=== PATIENT | female | born 1970 | race American Indian/Alaskan Native ===

== ENCOUNTER 2016-12-24 15:05 | Outpatient (CLI) | payer BC, MEDICARE | END 2016-12-24 15:06 | disposition home or self-care (01) | LOC: LABHHL 15:05 | PROVIDERS: ATTEND Surgery | DX: N63 Unspecified lump in breast (principal); N60.02 Solitary cyst of left breast | CPT/HCPCS: 88112 ==

== ENCOUNTER 2016-12-26 09:05 | Outpatient (CLI) | payer MEDICARE, BC ==
--- NOTE | 2016-12-26 11:09 | Mammography Report ---
Bilateral mammogram: No previous available. CAD study utilized. Findings: Predominance adipose tissue bilaterally. Circumscribed mass measuring 4.09 x 4.09 cm in diameter noted at upper outer anterior left breast. No microcalcification. Benign axillary nodes. There is significant no focal circumscribed asymmetry noted at in the anterior left breast. In similar 3 mm densities are noted in mid posterior right breast. Impression: Circumscribed mass upper outer left breast Small circumscribed focal densities right and left breast. Recommend comparison with previous studies. If previous studies are not available spot mag and if necessary sonographic examination is advised. BI-RADS CATEGORY: 0 = Needs additional imaging evaluation ACR BI-RADS MAMMOGRAPHIC CODES: 0 = Needs additional imaging evaluation; 1 = Negative; 2 = Benign; 3 = Probably benign; 4 = Suspicious; 5 = Malignant; 6 = Known biopsy-proven malignancy COMMENT: 1. Dense breast tissue, i.e., adenosis, fibrocystic changes, etc., may obscure an underlying neoplasm. 2. Approximately 10% of cancers are not detected with mammography. 3. A negative mammography report should not delay biopsy if a clinically suspicious mass is present. COMMENT: Patient follow-up letters are generated in GitHub.
== END 2016-12-26 09:06 | disposition home or self-care (01) ==
LOC: MAMMO 09:05
PROVIDERS: ATTEND Surgery
DX: Z12.31 Encounter for screening mammogram for malignant neoplasm of breast (principal); I12.0 Hypertensive chronic kidney disease with stage 5 chronic kidney disease or end stage renal disease; N18.6 End stage renal disease; E11.22 Type 2 diabetes mellitus with diabetic chronic kidney disease; N17.9 Acute kidney failure, unspecified; D64.9 Anemia, unspecified
CPT/HCPCS: 77067; G0202

== ENCOUNTER 2017-01-06 15:08 | Outpatient (CLI) | payer MEDICARE ==
--- NOTE | 2017-01-06 16:31 | Mammography Report ---
Spot compression magnification of circumscribed densities in the right breast and in the left breast followed by sonographic examination: Findings: Densities are approximately 5 mm in diameter and well circumscribed. No microcalcifications, no spiculation. Sonographic examination reveals no cystic or solid mass corresponding to the region of the densities. There is subareolar cyst identified at the right breast measuring 0.6 x 0.3 x 0.5 cm which is an incidental finding and this cyst appears benign. Impression: Probably benign density is right and left breast. 6 month followup with mammogram and if necessary sonogram recommended. BI-RADS CATEGORY: 3 = Probably benign ACR BI-RADS MAMMOGRAPHIC CODES: 0 = Needs additional imaging evaluation; 1 = Negative; 2 = Benign; 3 = Probably benign; 4 = Suspicious; 5 = Malignant; 6 = Known biopsy-proven malignancy COMMENT: 1. Dense breast tissue, i.e., adenosis, fibrocystic changes, etc., may obscure an underlying neoplasm. 2. Approximately 10% of cancers are not detected with mammography. 3. A negative mammography report should not delay biopsy if a clinically suspicious mass is present. COMMENT: Patient follow-up letters are generated in [employer].
== END 2017-01-06 15:09 | disposition home or self-care (01) ==
LOC: SPVWC 15:08
PROVIDERS: ATTEND Surgery
DX: R92.2 Inconclusive mammogram (principal); I10 Essential (primary) hypertension; I50.9 Heart failure, unspecified
CPT/HCPCS: 76642; G0204; 77066

== ENCOUNTER 2017-01-07 06:31 | Day surgery (SDC) | payer MEDICARE ==
[2017-01-07] MEDS ORDERED: XYLOCAINE MPF 2% ONE (06:40)
[2017-01-07] MEDS ORDERED: DIPRIVAN 10 MG/ML IV ONE ×3 (06:43→09:12)
[2017-01-07] MEDS ORDERED: DILAUDID ONE (06:43)
[2017-01-07] MEDS ORDERED: NACL 0.9% 1000 ML 1,000 ML ONE (06:53)
[2017-01-07] MEDS ORDERED: PEPCID PO NR (07:00)
[2017-01-07] MEDS ORDERED: LACTATED RINGERS 1,000 ML IV SCH (07:00)
[2017-01-07] MEDS ORDERED: VERSED IV NR (07:00)
--- NOTE | 2017-01-07 07:00 | Anesthesia Day of Surgery ---
Anesthesia Day of Surgery - Day of Surgery Patient Examined: Yes Patient H&P Reviewed: Yes Patient is NPO: Yes
--- NOTE | 2017-01-07 07:03 | Anesthesia Consultation ---
Anesthesia Consult and Med Hx - Airway Anesthetic Teeth Evaluation: Good, Caps, Crowns ROM Head & Neck: Adequate Mental/Hyoid Distance: Adequate Mallampati Class: Class II Intubation Access Assessment: Probably Good - Pulmonary Exam CTA: Yes - Cardiac Exam Cardiac Exam: RRR - Pre-Operative Health Status ASA Pre-Surgery Classification: ASA4 Proposed Anesthetic Plan: MAC - Pulmonary Hx Smoking: No Hx Asthma: No SOB: No COPD: No Hx Pneumonia: No Hx Sleep Apnea: No - Cardiovascular System Hx Hypertension: Yes (since 2002) Hx Coronary Artery Disease: No Hx Heart Attack/AMI: No Hx Angina: No Hx Percutaneous Transluminal Coronary Angioplasty (PTCA): No Hx Pacemaker: No Hx Internal Defibrillator: No Hx Valvular Heart Disease: No Hx Heart Murmur: No Hx Peripheral Vascular Disease: No - Central Nervous System Hx Neuromuscular Disorder: Yes (hx GOUT) Hx Back Pain: No Hx Psychiatric Problems: No - Gastrointestinal Hx Ulcer: No - Endocrine Hx Renal Disease: Yes (ESRD/dialysis , , THU) Hx End Stage Renal Disease: Yes (HD , , Thursday nocturnal) Hx Cirrhosis: No Hx Liver Disease: No Hx Non-Insulin Dependent Diabetes: Yes (pt not on meds for 3 years) Hx Hypothyroidism: No Hx Hyperthyroidism: No - Hematic Hx Anemia: Yes Hx Sickle Cell Disease: No - Other Systems Hx Alcohol Use: No Hx Substance Use: No Hx Cancer: No Hx Obesity: Yes (BMI 36.7) - Additional Comments Anesthesia Medical History Comments: Pt NPO except for fluids for meds this AM. Hx of obesity, HTN, ESRD, Anemis, DM.Difficult to awaken after dental procedure no other issues with anesthesia.
[2017-01-07] MEDS ORDERED: VERSED ONE (07:09)
[2017-01-07 07:21] LABS: Hemoglobin 11.9 gm/dl (10.1-14.3)
[2017-01-07] MEDS ORDERED: XYLOCAINE 1% 20 mL ONE (07:23)
[2017-01-07] MEDS ORDERED: MARCAINE 0.25% INFILTRATI ONE ×2 (07:23→08:44)
[2017-01-07] MEDS ORDERED: NACL 0.9% 1000 ML 1,000 ML IV SCH (07:30)
[2017-01-07] MEDS ORDERED: VANCOMYCIN/NS 1 GM/250 ML 1 GM/250 ML BAG IV NR (08:00)
[2017-01-07] MEDS ORDERED: NACL 0.9% IR ONE (08:44)
[2017-01-07] MEDS ORDERED: XYLOCAINE 1% 20 mL INFILTRATI ONE (08:44)
--- NOTE | 2017-01-07 09:35 | Short Stay Summary ---
Short Stay Documentation Date of service: 01/07/17 - History H&P: obtained from office - Allergies and Medications Current Medications: Allergies cefazolin sodium [From Ancef] Allergy (Severe, Verified 01/05/17 14:55) Shortness of Breath ketorolac tromethamine [From Toradol] Allergy (Severe, Verified 01/05/17 14:55) Shortness of Breath morphine Allergy (Severe, Verified 01/05/17 14:55) Shortness of Breath meperidine HCl [From Demerol] Adverse Reaction (Severe, Verified 01/05/17 14:55) Shortness of Breath Home Medications Medication Instructions Recorded Confirmed Last Taken Type RX: Sevelamer Carbonate [Renvela] 800 mg PO TIDWM 04/05/16 01/07/17 01/06/17 18: 00 History RX: cloNIDine [Catapres] 0.2 mg PO BID 01/05/17 01/07/17 01/07/17 06:00 History Active Medications Famotidine (Pepcid) 20 mg PO PREOP NR Stop: 01/07/17 23:59 Last Admin: 01/07/17 07:27 Dose: 20 mg Lactated Ringer's (Lactated Ringers) 1,000 mls @ 100 mls/hr IV DIRECT TODD Sodium Chloride (Nacl 0.9% 1000 Ml) 1,000 mls @ 42 mls/hr IV DIRECT TODD Last Admin: 01/07/17 07:39 Dose: 42 mls/hr Midazolam HCl (Versed) 2 mg IV PREOP NR Stop: 01/07/17 23:59 Last Admin: 01/07/17 07:57 Dose: 2 mg - Brief post op/procedure progress note Date of procedure: 01/07/17 Pre-op diagnosis: Left breast sebaceous cyst Post-op diagnosis: same Procedure: Left breast excisional biopsy of sebaceous cyst Anesthesia: GETA Findings: Known left breast sebaceous cyst at the 3:00 position Surgeon: CHRIS ESTES Estimated blood loss: minimal Pathology: list (left breast sebaceous cyst) Specimen disposition: to lab Condition: stable - Disposition Condition at discharge: Good Disposition: DC-01 TO HOME OR SELFCARE Short Stay Discharge Plan Activity: other (no heavy lifting) Diet: diabetic Wound: other (keep incision clean and dry and may shower in 24 hours; no baths, pools or lakes; do not rub or scrub incision) Follow up with: MARLENI ORR MD [Primary Care Provider] - 7 Days CHRIS ESTES MD [Staff Physician] - 7 Days
--- NOTE | 2017-01-07 09:43 | Operative Report ---
Operative Report Operative Report: Date of procedure:January 07, 2017 Pre-operative diagnosis: Left breast sebaceous cyst Post-operative diagnosis:Same Procedure name(s): Complex left breast sebaceous cyst excisional biopsy Surgeon: Naz Garvin MD Washing Machine Assembler: Same Anesthesia: Local MAC Findings: Left breast sebaceous cyst at the 3:00 position Complications: None EBL: Minimal Disposition: PACU in good condition Indications for operative procedure:This is a 46 year old lady with a chronic left breast sebaceous cyst. Given size of 5 cm, patient was wanting to proceed with an excisional biopsy. She wished to proceed with the above procedure. Procedure in detail:The patient was taken to the operating room and was laid supine. MAC anesthesia was administered. The left breast was prepped and draped in the normal sterile operative fashion. A left breast sebaceous cyst at 3 o' clock position 5 cm from the nipple was identified. The skin was anesthetized with 1% lidocaine mixed with quarter percent Marcaine. A skin incision was made with a 15 blade knife with dissection taken down to the subcutaneous tissues. Sebaceous cyst was appropriately excised with the aid of the Bovie cautery. Hemostasis was obtained. Specimen was sent to pathology. Breast cavity was appropriately irrigated and suctioned. The skin was approximated and closed using a running 4-0 Monocryl followed by skin affix. She tolerated surgery very well and was awakened from anesthesia without any complications and transferred to PACU in good condition.
--- NOTE | 2017-01-07 10:01 | Post Anesthesia Evaluation ---
- Post Anesthesia Evaluation Patient Participated: Yes Airway Patent: Yes Stable Respiratory Function: Yes Nausea/Vomiting: No Temp > 96.8F: Yes Pain Manageable: Yes Adequeate Hydration: Yes Anesthesia Complications: No Block Receding Appropriately: Not Applicable Patient on Ventilator: No
--- NOTE | 2017-01-07 10:25 | Post Anesthesia Evaluation ---
- Post Anesthesia Evaluation Patient Participated: Yes Airway Patent: Yes Stable Respiratory Function: Yes Nausea/Vomiting: No Temp > 96.8F: Yes Pain Manageable: Yes Adequeate Hydration: Yes Anesthesia Complications: No
[2017-01-07] MEDS ORDERED: ZOFRAN IV ONE (11:15)
[2017-01-07 11:54] VITALS: BP 117/69
== END 2017-01-07 11:18 | disposition home or self-care (01) ==
LOC: OR 06:31
PROVIDERS: ATTEND Surgery
DX: N60.82 Other benign mammary dysplasias of left breast (principal); N61.1 Abscess of the breast and nipple; E11.22 Type 2 diabetes mellitus with diabetic chronic kidney disease; I12.0 Hypertensive chronic kidney disease with stage 5 chronic kidney disease or end stage renal disease; N18.6 End stage renal disease; M10.9 Gout, unspecified; D64.9 Anemia, unspecified; E66.9 Obesity, unspecified; Z68.37 Body mass index [BMI] 37.0-37.9, adult; Z88.1 Allergy status to other antibiotic agents; Z88.5 Allergy status to narcotic agent; Z88.8 Allergy status to other drugs, medicaments and biological substances
CPT/HCPCS: 19120; 36415; 84132; 85014; 85018; 88307; J1170; J2250; J2405; J2704; J3370; J7030; 88304

== ENCOUNTER 2017-01-20 08:56 | Outpatient (CLI) | payer MEDICARE | END 2017-01-20 08:57 | disposition home or self-care (01) | LOC: ECHO 08:56 | PROVIDERS: ATTEND Internal Medicine Nephrology | DX: N18.6 End stage renal disease (principal); Z94.0 Kidney transplant status | CPT/HCPCS: 93017; 93320; 93325; C8928; Q9957 ==

== ENCOUNTER 2019-02-11 10:55 | Day surgery (SDC) | payer MEDICARE ==
[2019-02-11] MEDS ORDERED: XYLOCAINE MPF 2% ONE (11:00)
[2019-02-11] MEDS ORDERED: CLEOCIN 600 MG/50 mL 600 MG/50 ML BAG IV NR (11:19)
[2019-02-11 11:41] LABS: Basophils # (Auto) 0.1 K/mm3 (0.0-0.1); Basophils % (Auto) 0.9 % (0.0-1.8); Hematocrit 31.4 % (30.3-42.9); Hemoglobin 9.9 gm/dl (10.1-14.3); Lymphocytes # (Auto) 0.8 K/mm3 (1.2-5.4); Lymphocytes % (Auto) 12.3 % (13.4-35.0); Mean Corpuscular HGB Conc 32 % (30-34); Mean Corpuscular Volume 83 fl (79-97); Monocytes # (Auto) 0.5 K/mm3 (0.0-0.8); Monocytes % (Auto) 7.9 % (0.0-7.3); Platelet Count 306 K/mm3 (140-440); Red Blood Count 3.78 M/mm3 (3.65-5.03)
[2019-02-11 11:44] LABS: Red Cell Distribution Width 20.3 % (13.2-15.2)
[2019-02-11 11:50] LABS: INR 1.26 (0.87-1.13)
[2019-02-11 11:51] LABS: Partial Thromboplastin Time 26.9 Sec. (24.2-36.6)
[2019-02-11] MEDS ORDERED: VERSED ONE (11:53)
[2019-02-11] MEDS ORDERED: DIPRIVAN 10 MG/ML IV ONE ×2 (11:53)
[2019-02-11 11:56] LABS: Calcium 9.6 mg/dL (8.4-10.2)
[2019-02-11] MEDS ORDERED: NACL 0.9% 500 ML 500 ML IV SCH (12:00)
[2019-02-11] MEDS ORDERED: HURRICAINE ONE 20% TOPICAL SPRAY MM NR (12:00)
--- NOTE | 2019-02-11 15:26 | Anesthesia Consultation ---
Anesthesia Consult and Med Hx Date of service: 02/11/19 - Airway Anesthetic Teeth Evaluation: Good ROM Head & Neck: Adequate Mental/Hyoid Distance: Adequate Mallampati Class: Class III Intubation Access Assessment: Possibly Difficult - Pulmonary Exam CTA: Yes - Cardiac Exam Cardiac Exam: RRR - Pre-Operative Health Status ASA Pre-Surgery Classification: ASA3 Proposed Anesthetic Plan: MAC - Pulmonary Hx Smoking: No Hx Respiratory Symptoms: No - Cardiovascular System Hx Hypertension: Yes (patient denies) Hx Heart Attack/AMI: No Hx Percutaneous Transluminal Coronary Angioplasty (PTCA): No Hx Valvular Heart Disease: Yes (s/p AVR/MVR and TV repair 10/2018) - Central Nervous System Hx Seizures: No CVA: No Hx Psychiatric Problems: No - Gastrointestinal Hx Gastroesophageal Reflux Disease: No - Endocrine Hx End Stage Renal Disease: Yes (last HD 02/10/19) Hx Liver Disease: No Hx Insulin Dependent Diabetes: No Hx Non-Insulin Dependent Diabetes: No (patient denies) Hx Thyroid Disease: No - Hematic Hx Anemia: Yes - Other Systems Hx Obesity: Yes
--- NOTE | 2019-02-11 15:27 | Anesthesia Day of Surgery ---
Anesthesia Day of Surgery - Day of Surgery Patient Examined: Yes Patient H&P Reviewed: Yes Patient is NPO: Yes
[2019-02-11 16:02] VITALS: BP 141/95
== END 2019-02-11 16:23 | disposition home or self-care (01) ==
LOC: CATHLABREC 10:55 → EDSTATUS 12:00 → CATHLABREC 16:23
PROVIDERS: ATTEND Internal Medicine Cardiovascular Disease
DX: I08.1 Rheumatic disorders of both mitral and tricuspid valves (principal); I13.2 Hypertensive heart and chronic kidney disease with heart failure and with stage 5 chronic kidney disease, or end stage renal disease; E11.22 Type 2 diabetes mellitus with diabetic chronic kidney disease; N18.6 End stage renal disease; I50.21 Acute systolic (congestive) heart failure; I25.2 Old myocardial infarction; E11.42 Type 2 diabetes mellitus with diabetic polyneuropathy; E66.9 Obesity, unspecified; Z87.440 Personal history of urinary (tract) infections; Z86.79 Personal history of other diseases of the circulatory system; Z98.890 Other specified postprocedural states; Z95.3 Presence of xenogenic heart valve; Z79.899 Other long term (current) drug therapy; Z88.5 Allergy status to narcotic agent; Z68.32 Body mass index [BMI] 32.0-32.9, adult; Z98.51 Tubal ligation status; Z98.891 History of uterine scar from previous surgery; Z99.2 Dependence on renal dialysis; Z82.61 Family history of arthritis; Z83.3 Family history of diabetes mellitus; Z86.2 Personal history of diseases of the blood and blood-forming organs and certain disorders involving the immune mechanism; Z88.8 Allergy status to other drugs, medicaments and biological substances
CPT/HCPCS: 36415; 80048; 85025; 85610; 85730; 93312; 93320; 93325; 96365; J2250; J2704; J7040

== ENCOUNTER 2019-02-13 15:26 | Inpatient (IN) | payer MEDICARE ==
--- NOTE | 2019-02-13 16:15 | Emergency Department Report ---
ED Shortness of Breath HPI - General Chief Complaint: Dyspnea/Respdistress Stated Complaint: HEATH Time Seen by Provider: 02/13/19 16:14 Source: patient Mode of arrival: Stretcher Limitations: No Limitations - History of Present Illness Initial Comments: Patient is a 49-year-old female that presents emergency room for shortness of breath 2 days. Patient states her shortness of breath is worse with talking and exertion and activity. Patient states she can't walk more than a few steps without having to stop. Patient states her shortness of breath is better with rest. Patient complains of palpitation. Patient denies chest pain. Patient denies fever or chills. Patient states he recently had a bout of endocarditis where she was discharged from [facility] November 2018. Patient states that her endocarditis secondary to sepsis. Patient states she had open heart surgery at that time and hasn't a valve repair as well as 2 bouts replaced secondary to endocarditis and sepsis. Patient states she is on long-term IV antibiotics. Patient states one day ago her antibiotics were changed from daptomycin to Levaquin. Patient states she had a TILA last Thursday and there was no vegetations on her valves MD Complaint: shortness of breath -: Sudden Severity: severe Consistency: constant Improves With: rest, upright position Worsens With: lying flat, exertion, movement Associated Symptoms: orhopnia, palpitations - Related Data Home Medications Medication Instructions Recorded Confirmed Last Taken Sevelamer Carbonate [Renvela] 800 mg PO TIDWM 04/05/16 02/13/19 06/06/18 800 mg Aspirin [Adult Aspirin] 81 mg PO DAILY 02/13/19 02/13/19 Unknown Allergies Allergy/AdvReac Type Severity Reaction Status Date / Time cefazolin sodium [From Ancef] Allergy Severe Shortness Verified 01/05/17 14:55 of Breath ketorolac tromethamine Allergy Severe Shortness Verified 01/05/17 14:55 [From Toradol] of Breath morphine Allergy Severe Shortness Verified 01/05/17 14:55 of Breath vancomycin Allergy Shortness Verified 06/07/18 10:55 of Breath meperidine HCl [From Demerol] AdvReac Severe Shortness Verified 01/05/17 14:55 of Breath ED Review of Systems ROS: Stated complaint: HEATH Other details as noted in HPI Constitutional: denies: chills, fever Eyes: denies: eye pain, eye discharge, vision change ENT: denies: ear pain, throat pain Respiratory: shortness of breath, SOB with exertion, SOB at rest. denies: cough Cardiovascular: as per HPI, palpitations, dyspnea on exertion. denies: chest pain Endocrine: no symptoms reported Gastrointestinal: denies: abdominal pain, nausea, diarrhea Genitourinary: denies: urgency, dysuria, discharge Musculoskeletal: denies: back pain, joint swelling, arthralgia Skin: denies: rash, lesions Neurological: denies: headache, weakness, paresthesias Psychiatric: denies: anxiety, depression Hematological/Lymphatic: denies: easy bleeding, easy bruising ED Past Medical Hx - Past Medical History Previous Medical History?: Yes Hx Hypertension: Yes (patient denies) Hx Heart Attack/AMI: No Hx Congestive Heart Failure: No Hx Diabetes: Yes (pt states was borderline before weight loss, now her Dm is con trolled) Hx Deep Vein Thrombosis: No Hx Pulmonary Embolism: No Hx GERD: No Hx Liver Disease: No Hx Renal Disease: Yes (ESRD/dialysis Tues, Th, SUN) Hx Sickle Cell Disease: No Hx Arthritis: No Hx Headaches / Migraines: No Hx Seizures: No Hx Kidney Stones: No Hx Asthma: No Hx COPD: No Hx Tuberculosis: No Hx HIV: No Additional medical history: Aortic and Mitral valve replacement with cow valves 11/12 - Surgical History Past Surgical History?: Yes Hx Coronary Stent: No Hx Pacemaker: Yes Hx Internal Defibrillator: No Hx Appendectomy: Yes Additional Surgical History: x 2. tonsillectomy. myomectomy. fistula L-arm. Aortic and Mitral valve replacement with cow valves 11/12 - Family History Family history: no significant - Social History Smoking Status: Never Smoker Substance Use Type: None - Medications Home Medications: Home Medications Medication Instructions Recorded Confirmed Last Taken Type Sevelamer Carbonate [Renvela] 800 mg PO TIDWM 04/05/16 02/13/19 06/06/18 History 800 mg Aspirin [Adult Aspirin] 81 mg PO DAILY 02/13/19 02/13/19 Unknown History ED Physical Exam - General Limitations: No Limitations General appearance: alert, in no apparent distress - Head Head exam: Present: atraumatic, normocephalic - Eye Eye exam: Present: normal appearance - ENT ENT exam: Present: mucous membranes moist - Neck Neck exam: Present: normal inspection - Respiratory Respiratory exam: Present: normal lung sounds bilaterally. Absent: respiratory distress, wheezes, rales - Cardiovascular Cardiovascular Exam: Present: regular rate, normal rhythm. Absent: systolic murmur, diastolic murmur, rubs, gallop - GI/Abdominal GI/Abdominal exam: Present: soft, normal bowel sounds. Absent: distended, tenderness, guarding - Extremities Exam Extremities exam: Present: normal inspection - Back Exam Back exam: Present: normal inspection - Neurological Exam Neurological exam: Present: alert, oriented X3 - Psychiatric Psychiatric exam: Present: normal affect, normal mood - Skin Skin exam: Present: warm, dry, intact, normal color. Absent: rash ED Course Vital Signs 02/13/19 02/13/19 02/13/19 15:44 15:46 15:49 Temperature 98.3 F Pulse Rate 68 84 72 Respiratory 17 15 Rate Blood Pressure 123/78 Blood Pressure [Right] O2 Sat by Pulse 99 96 Oximetry 02/13/19 02/13/19 02/13/19 16:00 16:15 16:31 Temperature Pulse Rate 80 81 77 Respiratory 18 27 H 24 Rate Blood Pressure 129/100 123/78 123/78 Blood Pressure [Right] O2 Sat by Pulse 92 95 94 Oximetry 02/13/19 02/13/19 02/13/19 16:45 17:01 17:15 Temperature Pulse Rate 75 81 73 Respiratory 18 18 28 H Rate Blood Pressure 123/78 123/78 123/78 Blood Pressure [Right] O2 Sat by Pulse 100 97 Oximetry 02/13/19 02/13/19 02/13/19 17:31 18:01 18:31 Temperature Pulse Rate 77 74 81 Respiratory 20 16 12 Rate Blood Pressure 123/78 123/78 123/78 Blood Pressure [Right] O2 Sat by Pulse 97 100 100 Oximetry 02/13/19 02/13/19 19:59 20:00 Temperature 98.4 F Pulse Rate 74 Respiratory 20 20 Rate Blood Pressure Blood Pressure 115/75 [Right] O2 Sat by Pulse 100 100 Oximetry - Reevaluation(s) Reevaluation #1: I discussed all results patient. Patient will be admitted to the hospitalist service. Patient agrees to plan of care. 02/13/19 17:31 - Consultations Consultation #1: Hospitalist consult for admission. Hospitalist to admit patient assumed care of patient. bridge Orders placed. 02/13/19 17:31 ED Medical Decision Making - Lab Data Result diagrams: 02/13/19 16:02 02/13/19 16:02 - EKG Data -: EKG Interpreted by Me EKG shows normal: ST-T waves - EKG Data Interpretation: other (paced rhythm.) EKG interpreted by me, patient is atrial flutter and a paced rhythm. Patient found to have normal STs. Patient has an axis deviation and a left deviation. Patient has an abnormal EKG. With a rate of 76, wide QRSs 02/13/19 16:29 - Radiology Data Radiology results: report reviewed, image reviewed CHEST 1 VIEW INDICATION / CLINICAL INFORMATION: Chest Pain. Recent CABG surgery this past October COMPARISON: None available. FINDINGS: SUPPORT DEVICES: None. HEART / MEDIASTINUM: Cardiac size is mildly enlarged. Prosthetic valve as well as call center assistant device are present. LUNGS / PLEURA: Slightly suboptimal inspiration. Mild pulmonary vascular congestion without overt interstitial pulmonary edema. No evidence of pneumonia or pleural effusion. No pneumothorax. ADDITIONAL FINDINGS: No significant additional findings. IMPRESSION: 1. Mild cardiomegaly with pulmonary vascular congestion. - Medical Decision Making Patient is a 49-year-old female appears emergency room with complaints of shortness of breath. Patient found to be in CHF exacerbation. Patient admitted to the hospitalist service. Patient sat unremarkable except for findings consistent with end-stage renal disease. No hyperkalemia noted. Patient's troponin elevated but is most likely secondary to CK 80. We will watch the trend of her troponin. Patient's chest x-ray shows pulmonary congestion. - Differential Diagnosis CHF. Social breath. Discharged on exertion. Palpitations. Critical Care Time: Yes Critical care attestation.: If time is entered above; I have spent that time in minutes in the direct care of this critically ill patient, excluding procedure time. Critical Care Time: 35 minutes ED Disposition Clinical Impression: End stage renal disease, SOB (shortness of breath), CKD (chronic kidney disease) requiring chronic dialysis, Elevated troponin I level Congestive heart failure Qualifiers: Heart failure type: unspecified Heart failure chronicity: acute Qualified Code(s): I50.9 - Heart failure, unspecified Disposition: OP ADMIT IP TO THIS HOSP Is pt being admited?: Yes Does the pt Need Aspirin: No Condition: Critical Time of Disposition: 17:27
[2019-02-13 16:32] LABS: Calcium 9.8 mg/dL (8.4-10.2)
--- NOTE | 2019-02-13 16:36 | XRay Report ---
CHEST 1 VIEW INDICATION / CLINICAL INFORMATION: Chest Pain. Recent CABG surgery this past October COMPARISON: None available. FINDINGS: SUPPORT DEVICES: None. HEART / MEDIASTINUM: Cardiac size is mildly enlarged. Prosthetic valve as well as research nutritionist dev ice are present. LUNGS / PLEURA: Slightly suboptimal inspiration. Mild pulmonary vascular congestion without overt int erstitial pulmonary edema. No evidence of pneumonia or pleural effusion. No pneumothorax. ADDITIONAL FINDINGS: No significant additional findings. IMPRESSION: 1. Mild cardiomegaly with pulmonary vascular congestion. Signer Name: Poppy George MD Signed: 02/13/2019 4:32 PM Workstation Name: [id number]
[2019-02-13 16:51] LABS: Basophils # (Auto) 0.1 K/mm3 (0.0-0.1); Basophils % (Auto) 0.9 % (0.0-1.8); Hematocrit 31.9 % (30.3-42.9); Hemoglobin 10.2 gm/dl (10.1-14.3); Lymphocytes # (Auto) 1.3 K/mm3 (1.2-5.4); Lymphocytes % (Auto) 17.3 % (13.4-35.0); Mean Corpuscular HGB Conc 32 % (30-34); Mean Corpuscular Volume 82 fl (79-97); Monocytes # (Auto) 0.7 K/mm3 (0.0-0.8); Platelet Count 342 K/mm3 (140-440); Red Blood Count 3.88 M/mm3 (3.65-5.03)
[2019-02-13 16:52] LABS: Red Cell Distribution Width 20.5 % (13.2-15.2)
[2019-02-13 16:59] LABS: Chol/HDL Ratio 2.29 %
[2019-02-13 17:19] LABS: Alanine Aminotransferase 7 units/L (7-56); Albumin 3.6 g/dL (3.9-5); Bilirubin,Direct 0.3 mg/dL (0-0.2)
--- NOTE | 2019-02-13 19:59 | History and Physical Report ---
History of Present Illness Date of examination: 02/13/19 Date of admission: 02/13/19 17:32 Chief complaint: Shortness of breath for 2 days History of present illness: 49-year-old -Nepalese female with history of hypertension, end-stage renal disease on hemodialysis: Type 2 diabetes and recent endocarditis on Levaquin constant for increasing shortness of breath and orthopnea for 2 days. Patient gets short of breath on walking a few steps consistent with NYHA class IV symptoms. Patient also has orthopnea. Unable to lie flat. She had mitral valve did valve replacement in October 2018 secondary to endocarditis. Patient has been on daptomycin and recently changed to Levaquin. As per the patient patient is being on antibiotics for the last 12 weeks. No fever or chills. Patient is being treated by Dr. rodney from [facility]. No cough. No ches t pain. No diaphoresis. Past Medical History Previous Medical History?: Yes Hypertension: Yes (patient denies) Diabetes: Yes (pt states was borderline before weight loss, now her Dm is controlled) Renal Disease: Yes (ESRD/dialysis Della Contreras, JAD) Additional medical history: Aortic and Mitral valve replacement with cow valves 11/12 Surgical History Past Surgical History?: Yes Pacemaker: Yes Appendectomy: Yes x 2. tonsillectomy. myomectomy. fistula L-arm. Aortic and Mitral valve replacement with Bovine valves 11/12 Family History HTN Social History Smoking Status: Never Smoker Substance Use Type: None Medications Home Medications: Home Medications Medication Instructions Recorded Confirmed Last Taken Type Sevelamer Carbonate [Renvela] 800 mg PO TIDWM 04/05/16 06/07/18 06/06/18 History 800 mg Review of Systems ROS: Stated complaint: HEATH Other details as noted in HPI Constitutional: denies: chills, fever Eyes: denies: eye pain, eye discharge, vision change ENT: denies: ear pain, throat pain Respiratory: shortness of breath, SOB with exertion, SOB at rest. denies: cough Cardiovascular: as per HPI, palpitations, dyspnea on exertion. denies: chest pain Endocrine: no symptoms reported Gastrointestinal: denies: abdominal pain, nausea, diarrhea Genitourinary: denies: urgency, dysuria, discharge Musculoskeletal: denies: back pain, joint swelling, arthralgia Skin: denies: rash, lesions Neurological: denies: headache, weakness, paresthesias Psychiatric: denies: anxiety, depression Hematological/Lymphatic: denies: easy bleeding, easy bruising Medications and Allergies Allergies Allergy/AdvReac Type Severity Reaction Status Date / Time cefazolin sodium [From Ancef] Allergy Severe Shortness Verified 01/05/17 14:55 of Breath ketorolac tromethamine Allergy Severe Shortness Verified 01/05/17 14:55 [From Toradol] of Breath morphine Allergy Severe Shortness Verified 01/05/17 14:55 of Breath vancomycin Allergy Shortness Verified 06/07/18 10:55 of Breath meperidine HCl [From Demerol] AdvReac Severe Shortness Verified 01/05/17 14:55 of Breath Home Medications Medication Instructions Recorded Confirmed Last Taken Type Sevelamer Carbonate [Renvela] 800 mg PO TIDWM 04/05/16 02/13/19 06/06/18 History 800 mg Aspirin [Adult Aspirin] 81 mg PO DAILY 02/13/19 02/13/19 Unknown History Exam - Constitutional Vitals: Temp Pulse Resp BP Pulse Ox 98.3 F 81 12 123/78 100 02/13/19 15:49 02/13/19 18:31 02/13/19 18:31 02/13/19 18:31 02/13/19 18:31 General appearance: Present: mild distress, well-nourished - EENT Eyes: Present: PERRL ENT: hearing intact, clear oral mucosa - Neck Neck: Present: supple, normal ROM - Respiratory Respiratory effort: normal Respiratory: bilateral: CTA, rhonchi (scattered rales at the bases) - Cardiovascular Heart rate: 76 Rhythm: irregularly irregular Heart Sounds: Present: S1 & S2. Absent: rub, click - Extremities Extremities: no ischemia, pulses intact, pulses symmetrical, No edema Peripheral Pulses: within normal limits - Abdominal General gastrointestinal: Present: soft, non-tender, non-distended, normal bowel sounds Female genitourinary: Present: normal - Integumentary Integumentary: Present: clear, warm, dry - Musculoskeletal Musculoskeletal: gait normal, strength equal bilaterally - Psychiatric Psychiatric: appropriate mood/affect, intact judgment & insight - Neurologic Neurologic: CNII-XII intact, moves all extremities - Allied Health Allied health notes reviewed: nursing, case management Results - Labs CBC & Chem 7: 02/13/19 16:02 02/13/19 16:02 Labs: Laboratory Last Values WBC 7.6 K/mm3 (4.5-11.0) 02/13/19 16:02 RBC 3.88 M/mm3 (3.65-5.03) 02/13/19 16:02 Hgb 10.2 gm/dl (10.1-14.3) 02/13/19 16:02 Hct 31.9 % (30.3-42.9) 02/13/19 16:02 MCV 82 fl (79-97) 02/13/19 16:02 MCH 26 pg (28-32) L 02/13/19 16:02 MCHC 32 % (30-34) 02/13/19 16:02 RDW 20.5 % (13.2-15.2) H 02/13/19 16:02 Plt Count 342 K/mm3 (140-440) 02/13/19 16:02 Lymph % (Auto) 17.3 % (13.4-35.0) 02/13/19 16:02 [place] % (Auto) 9.0 % (0.0-7.3) H 02/13/19 16:02 Eos % (Auto) 0.0 % (0.0-4.3) 02/13/19 16:02 Baso % (Auto) 0.9 % (0.0-1.8) 02/13/19 16:02 Lymph # 1.3 K/mm3 (1.2-5.4) 02/13/19 16:02 [place] # 0.7 K/mm3 (0.0-0.8) 02/13/19 16:02 Eos # 0.0 K/mm3 (0.0-0.4) 02/13/19 16:02 Baso # 0.1 K/mm3 (0.0-0.1) 02/13/19 16:02 Seg Neutrophils % 72.8 % (40.0-70.0) H 02/13/19 16:02 Seg Neutrophils # 5.6 K/mm3 (1.8-7.7) 02/13/19 16:02 Sodium 137 mmol/L (137-145) 02/13/19 16:02 Potassium 4.3 mmol/L (3.6-5.0) 02/13/19 16:02 Chloride 92.8 mmol/L (98-107) L 02/13/19 16:02 Carbon Dioxide 29 mmol/L (22-30) 02/13/19 16:02 20 mmol/L 02/13/19 16:02 BUN 23 mg/dL (7-17) H 02/13/19 16:02 6.0 mg/dL (0.7-1.2) H 02/13/19 16:02 Estimated GFR 9 ml/min 02/13/19 16:02 4 % 02/13/19 16:02 Glucose 117 mg/dL (65-100) H 02/13/19 16:02 Lactic Acid 1.50 mmol/L (0.7-2.0) 02/13/19 16:33 Calcium 9.8 mg/dL (8.4-10.2) 02/13/19 16:02 0.80 mg/dL (0.1-1.2) 02/13/19 16:33 0.3 mg/dL (0-0.2) H 02/13/19 16:33 0.5 mg/dL 02/13/19 16:33 AST 11 units/L (5-40) 02/13/19 16:33 ALT 7 units/L (7-56) 02/13/19 16:33 57 units/L (35-129) 02/13/19 16:33 0.256 ng/mL (0.00-0.029) H* 02/13/19 16:02 NT-Pro-B Natriuret Pep > 06437 pg/mL (0-450) H 02/13/19 16:33 8.2 g/dL (6.3-8.2) 02/13/19 16:33 3.6 g/dL (3.9-5) L 02/13/19 16:33 0.8 % 02/13/19 16:33 Triglycerides 90 mg/dL (2-149) 02/13/19 16:02 Cholesterol 78 mg/dL (50-199) 02/13/19 16:02 30 mg/dL (50-130) L 02/13/19 16:02 34 mg/dL (40-59) L 02/13/19 16:02 2.29 % 02/13/19 16:02 Short CBC 02/13/19 Range/Units 16:02 WBC 7.6 (4.5-11.0) K/mm3 Hgb 10.2 (10.1-14.3) gm/dl Hct 31.9 (30.3-42.9) % Plt Count 342 (140-440) K/mm3 BMP 02/13/19 16:02 Sodium 137 Potassium 4.3 Chloride 92.8 L Carbon Dioxide 29 BUN 23 H Creatinine 6.0 H Glucose 117 H Calcium 9.8 Cardiac Enzymes 02/13/19 Range/Units 16:02 Troponin T 0.256 H* (0.00-0.029) ng/mL Liver Function 02/13/19 Range/Units 16:33 Total Bilirubin 0.80 (0.1-1.2) mg/dL Direct Bilirubin 0.3 H (0-0.2) mg/dL AST 11 (5-40) units/L ALT 7 (7-56) units/L Alkaline Phosphatase 57 (35-129) units/L Albumin 3.6 L (3.9-5) g/dL - Imaging and Cardiology EKG: report reviewed (heart rate 76/m atrial fibrillation/flutter and ventricular paced complexes with nonspecific T-wave abnormalities) Chest x-ray: report reviewed Imaging and Cardiology: Chest x-ray IMPRESSION: 1. Mild cardiomegaly with pulmonary vascular congestion. Assessment and Plan Advance Directives: Yes (full code) VTE prophylaxis?: Chemical Plan of care discussed with patient/family: Yes - Patient Problems (1) Acute exacerbation of congestive heart failure Current Visit: Yes Status: Acute Qualifiers: Heart failure type: combined systolic and diastolic Qualified Code(s): I50.43 - Acute on chronic combined systolic (congestive) and diastolic (congestive) heart failure Plan to address problem: Patient is also missing her dialysis Volume overload IV Lasix for now Echocardiogram ordered Daily weights and intake and output ordered Cardiology consult requested (2) End stage renal disease on dialysis Current Visit: Yes Status: Chronic Plan to address problem: Next hemodialysis on regular basis Patient is noncompliant Nephrology Dr. Nicole consulted (3) Elevated troponin I level Current Visit: Yes Status: Chronic Plan to address problem: NSTEMI type 2 Secondary to troponin leak (4) Type 2 diabetes mellitus Current Visit: Yes Status: Chronic Qualifiers: Diabetes mellitus terminal press operator insulin use: without terminal press operator use Plan to address problem: Coverage for now Check hemoglobin A1c (5) Endocarditis Current Visit: Yes Status: Chronic Qualifiers: Endocarditis type: infective Chronicity: subacute Plan to address problem: Treated for 12 weeks Patient will not need further antibiotics Will defer to ID for second opinion Patient was being treated by Dr. Rodney in [facility] (6) DVT prophylaxis Current Visit: Yes Status: Acute Plan to address problem: On heparin and GI prophylaxis
[2019-02-13] MEDS ORDERED: REGLAN IV PRN ×2 (20:10→20:31)
[2019-02-13] MEDS ORDERED: SODIUM CHLORIDE FLUSH SYRINGE 10 ML IV PRN (20:10)
[2019-02-13] MEDS ORDERED: ZOFRAN IV PRN (20:10)
[2019-02-13] MEDS ORDERED: TYLENOL PO PRN (20:10)
[2019-02-13] MEDS ORDERED: DILAUDID IV PRN (20:10)
[2019-02-13] MEDS ORDERED: PERCOCET 5/325 PO PRN (20:10)
[2019-02-13] MEDS ORDERED: LEVAQUIN 750MG/150ML 750 MG/150 ML BAG IV SCH (21:30)
[2019-02-13] MEDS ORDERED: LEVAQUIN 500MG/100ML 500 MG/100 ML BAG IV SCH (22:00)
[2019-02-13] MEDS: HALFPRIN EC PO SCH (22:35)
[2019-02-14] MEDS: K-DUR PO SCH ×2 (00:43→09:30)
[2019-02-14] MEDS: PEPCID PO SCH ×3 (00:52→21:42)
[2019-02-14] MEDS: SODIUM CHLORIDE FLUSH SYRINGE 10 ML IV SCH ×3 (00:56→21:56)
[2019-02-14] MEDS: HumaLOG SUB-Q SCH ×2 (01:00→07:53)
[2019-02-14] MEDS ORDERED: LASIX IV SCH (06:00)
[2019-02-14 06:17] LABS: Basophils # (Auto) 0.1 K/mm3 (0.0-0.1); Hematocrit 30.6 % (30.3-42.9); Hemoglobin 9.7 gm/dl (10.1-14.3); Lymphocytes # (Auto) 1.2 K/mm3 (1.2-5.4); Lymphocytes % (Auto) 17.6 % (13.4-35.0); Mean Corpuscular HGB Conc 32 % (30-34); Mean Corpuscular Volume 83 fl (79-97); Monocytes # (Auto) 0.7 K/mm3 (0.0-0.8); Monocytes % (Auto) 9.7 % (0.0-7.3); Platelet Count 342 K/mm3 (140-440); Red Blood Count 3.68 M/mm3 (3.65-5.03); Red Cell Distribution Width 20.7 % (13.2-15.2)
[2019-02-14 06:39] LABS: Albumin 3.8 g/dL (3.9-5); Calcium 9.4 mg/dL (8.4-10.2)
[2019-02-14] MEDS: RENVELA PO SCH ×4 (08:11→18:47)
--- NOTE | 2019-02-14 08:46 | Consultation ---
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 I personally reviewed [facility] records as follow. Recently seen at [facility] on 01/01/2019 due to fever in the dialysis center to 103, chest pain and shortness of breath. 01/01/19 Blood culture grew Enterococcus faecalis in 4/4 bottles, blood culture 01/04/2019 grew again Enterococcus faecalis in 3/4 bottles, 01/06/2019 also grew Enterococcus faecalis in 2/4 bottles (1 bottle from each set) and then 01/08/2019 grew Enterococcus 1 of 4. 01/10/2019 blood culture cleared. TILA consistent with MV prosthetic valve endocarditis. She was treated with daptomycin and gentamicin for 2 weeks then daptomycin alone on HD for extra 4 weeks per patient's report. Per patient, blood culture on 02/08/2019 were positive again (I do not have this report) and she was placed on levaquin q48 hour which she is still taking. Also she had a TILA on 02/11/2019 which did not show vegetation. Unfortunately, she was readmitted on 02/13/2019 due to worsening SOB for 48 hours and mild dry cough. She also noted SIMS. She reports she developed muscle twitching and insomnia while on daptomycin, which is better. Denies fever, chills. In the ED, temp 98.3, HR 68, R 17, BP 123/78. WBC 7.6. Hg 10.2. Plat 342. Creat 6. trop 0.2. BNP 70K. CXR mild cardiomegaly and pulmonary vascular congestion. Review of Systems: General: no fever, chills, no malaise Cutaneous: no rash, pruritus Head: no headaches or injury Eyes: no changes in vision, eye pain, double vision Ears: no ear pain, ear discharge, ringing or hearing loss Nose: no nose bleeding, stuffiness Mouth & throat: no bleeding gums, no horseness, no dental problems, or swollen glands Neck: no pain, node enlargement/lumps, tyroid enlargement or tenderness Respiratory: +SOB, +cough, +SIMS, wheezing, sputum, hemoptysis, pleuritic chest pain Cardiovascular: no chest pain, leg edema, cyanosis, SIMS, orthopnea Musculoskeletal: no edema Gastrointestinal: no nausea, no vomiting, no hematemesis, diarrhea, constipation, melena, bright red blood in stools, fecal incontinence, jaundice Genitourinary/Reproductive: no frequent urination, dysuria, hematuria, incontinence Neurogical: no seizures, no headaches, no weakness, no paresthesias, no loss of speech or vision; no memory loss, no vertigo, no tremors, no numbness Psychiatric: stable mood; no excessive anxiety, sadness or moodiness Medications and Allergies Allergies Allergy/AdvReac Type Severity Reaction Status Date / Time cefazolin sodium [From Ancef] Allergy Severe Shortness Verified 01/05/17 14:55 of Breath ketorolac tromethamine Allergy Severe Shortness Verified 01/05/17 14:55 [From Toradol] of Breath morphine Allergy Severe Shortness Verified 01/05/17 14:55 of Breath vancomycin Allergy Shortness Verified 06/07/18 10:55 of Breath meperidine HCl [From Demerol] AdvReac Severe Shortness Verified 01/05/17 14:55 of Breath Home Medications Medication Instructions Recorded Confirmed Last Taken Type Sevelamer Carbonate [Renvela] 800 mg PO TIDWM 04/05/16 02/13/19 06/06/18 History 800 mg Aspirin [Adult Aspirin] 81 mg PO DAILY 02/13/19 02/13/19 Unknown History Active Meds: Active Medications Acetaminophen (Tylenol) 650 mg PO Q4H PRN PRN Reason: Pain MILD(1-3)/Fever >100.5/DENIS Aspirin (Halfprin Ec) 81 mg PO DAILY [facility] Last Admin: 02/13/19 22:35 Dose: Not Given Documented by: Famotidine (Pepcid) 10 mg PO BID [facility] Last Admin: 02/14/19 00:52 Dose: 10 mg Documented by: Furosemide (Lasix) 40 mg IV 0600,1800 [facility] Hydromorphone HCl (Dilaudid) 0.5 mg IV Q3H PRN PRN Reason: Pain , Severe (7-10) Levofloxacin/Dextrose (Levaquin 500mg/100ml) 500 mg in 100 mls @ 100 mls/hr IV Q48HR [facility]; Protocol Insulin Human Lispro (Humalog) 0 unit SUB-Q ACHS [facility]; Protocol Last Admin: 02/14/19 07:53 Dose: Not Given Documented by: Metoclopramide HCl (Reglan) 5 mg IV Q6H PRN PRN Reason: Nausea And Vomiting Ondansetron HCl (Zofran) 4 mg IV Q8H PRN PRN Reason: Nausea And Vomiting Oxycodone/Acetaminophen (Percocet 5/325) 1 tab PO Q6H PRN PRN Reason: Pain, Moderate (4-6) Potassium Chloride (K-Dur) 20 meq PO QDAY [facility] Last Admin: 02/14/19 00:43 Dose: Not Given Documented by: Sevelamer Carbonate (Renvela) 800 mg PO TIDWM [facility] Last Admin: 02/14/19 08:11 Dose: 800 mg Documented by: Sodium Chloride (Sodium Chloride Flush Syringe 10 Ml) 10 ml IV BID [facility] Last Admin: 02/14/19 00:56 Dose: 10 ml Documented by: Sodium Chloride (Sodium Chloride Flush Syringe 10 Ml) 10 ml IV PRN PRN PRN Reason: LINE FLUSH Physical Examination - Physical Exam Narrative exam: General appearance: Alert in NAD Eyes: anicteric sclerae, moist conjunctivae; no lid-lag; PERRLA HENT: Atraumatic; oropharynx clear with moist mucous membranes and no mucosal ulcerations/no oral thrush; normal hard and soft palate. Lungs: CTA, with normal respiratory effort and no intercostal retractions CV: RRR no murmur Abdomen: Soft, non-tender; no masses or hepatosplenomegaly Extremities: nomild eboni leg edema, no cyanosis Skin: No rash. Midchest scar. Psych: Appropriate affect, alert and oriented to person, place and time. Neuro: alert and oriented x 3. Moving all extermities - Constitutional Vitals: Vital Signs Temp Pulse Resp BP Pulse Ox 97.9 F 79 17 136/91 98 02/14/19 07:40 02/14/19 07:41 02/14/19 07:41 02/14/19 07:41 02/14/19 04:00 Temperature -Last 24 Hours Temperature 97.9 F Temperature 97.5 F Temperature 98.7 F Temperature 98.4 F Temperature 98.3 F Results - Labs CBC & Chem 7: 02/14/19 05:25 02/14/19 05:25 Labs: Abnormal lab results 02/13/19 02/13/19 02/13/19 Range/Units 16:02 16:02 16:33 Hgb (10.1-14.3) gm/dl MCH 26 L (28-32) pg RDW 20.5 H (13.2-15.2) % [place] % (Auto) 9.0 H (0.0-7.3) % Seg Neutrophils % 72.8 H (40.0-70.0) % Chloride 92.8 L (98-107) mmol/L BUN 23 H (7-17) mg/dL Creatinine 6.0 H (0.7-1.2) mg/dL Glucose 117 H (65-100) mg/dL Hemoglobin A1c (4-6) % Direct Bilirubin 0.3 H (0-0.2) mg/dL Troponin T 0.256 H* (0.00-0.029) ng/mL NT-Pro-B Natriuret Pep > 23503 H (0-450) pg/mL Albumin 3.6 L (3.9-5) g/dL LDL Cholesterol Direct 30 L (50-130) mg/dL HDL Cholesterol 34 L (40-59) mg/dL 02/13/19 02/13/19 02/13/19 Range/Units 20:35 20:35 20:35 Hgb (10.1-14.3) gm/dl MCH (28-32) pg RDW (13.2-15.2) % [place] % (Auto) (0.0-7.3) % Seg Neutrophils % (40.0-70.0) % Chloride (98-107) mmol/L BUN (7-17) mg/dL Creatinine (0.7-1.2) mg/dL Glucose (65-100) mg/dL Hemoglobin A1c 6.1 H (4-6) % Direct Bilirubin (0-0.2) mg/dL Troponin T 0.233 H* 0.249 H* (0.00-0.029) ng/mL NT-Pro-B Natriuret Pep (0-450) pg/mL Albumin (3.9-5) g/dL LDL Cholesterol Direct (50-130) mg/dL HDL Cholesterol (40-59) mg/dL 02/14/19 02/14/19 Range/Units 05:25 05:25 Hgb 9.7 L (10.1-14.3) gm/dl MCH 27 L (28-32) pg RDW 20.7 H (13.2-15.2) % [place] % (Auto) 9.7 H (0.0-7.3) % Seg Neutrophils % 71.7 H (40.0-70.0) % Chloride 96.0 L (98-107) mmol/L BUN 26 H (7-17) mg/dL Creatinine 6.7 H (0.7-1.2) mg/dL Glucose 133 H (65-100) mg/dL Hemoglobin A1c (4-6) % Direct Bilirubin (0-0.2) mg/dL Troponin T (0.00-0.029) ng/mL NT-Pro-B Natriuret Pep (0-450) pg/mL Albumin 3.8 L (3.9-5) g/dL LDL Cholesterol Direct (50-130) mg/dL HDL Cholesterol (40-59) mg/dL Assessment and Plan Cultures: none Assessment: 49 y/o female with history of ESRD on HD, hypertension, pulmonary hypertension, diabetes, gout, MRSE bacteremia in November 2017 s/p prolonged daptomycin therapy, mitral valve endocarditis secondary to Enterococcus faecalis in July [address] Rodney ([place]) s/p bioprosthetic aortic valve replacement, bioprosth etic mitral valve replacement, and tricuspid annuloplasty on 11/17/2018 at [facility], pacemaker for heart block on 11/25/2018 with recent recurrent persistent Enterococcal bacteremia with MV prosthetic valve endocarditis treated with daptomycin and gentamicin for 2 weeks then daptomycin alone on HD for extra 4 weeks per patient's report, apparently a repeat blood culture on 02/08/2019 was again positive, patient started on po levaquin q 48 hour which she is taking, repeat TILA 02/11/2019 no vegetation, readmitted on 02/13/2019 due to worsening SOB / SIMS for 48 hours: 1) SOB/SIMS: likely pulmonary edema ?CHF ?volume overload, less likely daptomycin-induced lung toxicity. BNP 70K. CXR mild cardiomegaly and pulmonary vascular congestion. 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 01/10/2019 blood culture cleared. TILA consistent with MV prosthetic valve endocarditis.Treated with daptomycin and gentamicin for 2 weeks then daptomycin alone on HD for extra 4 weeks per patient's report, apparently a repeat blood culture on 02/08/2019 was again positive, patient started on po levaquin q 48 hour which she is taking, repeat TILA 02/11/2019 no vegetation. No evidence of sepsis at this time. 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 Almita Winters MD Infectious Diseases Agent [employer] [facility] ([facility] M [phone] O [phone]
[2019-02-14] MEDS: HALFPRIN EC PO SCH (09:29)
[2019-02-14] MEDS ORDERED: NACL 0.9% 100 ML IV PRN (09:51)
[2019-02-14] MEDS ORDERED: LEVAQUIN 500MG/100ML 500 MG/100 ML BAG IV SCH (10:00)
--- NOTE | 2019-02-14 10:57 | Consultation ---
History of Present Illness Consult date: 02/14/19 Requesting physician: BRETT LAMBERT Consult reason: congestive heart failure History of present illness: The pt is a 49 y/o female with history of ESRD on HD, hypertension, pulmonary hypertension, diabetes, gout, MRSE bacteremia in November 2017 s/p prolonged daptomycin therapy, mitral valve endocarditis secondary to Enterococcus faecalis in July [address] Rodney (ID) s/p bioprosthetic aortic valve replacement, bioprosthetic mitral valve replacement, and tricuspid annuloplasty on 11/17/2018 at [facility], [facility] s/p leadless pacemaker implantation on 11/22/2018. She is followed in our office by Dr. Henderson. Recently seen at [facility] on 01/01/2019 due to fever in the dialysis center to 103, chest pain and shortness of breath. 01/01/19 Blood culture grew Enterococcus faecalis in 4/4 bottles, blood culture 01/04/2019 grew again Enterococcus faecalis in 3/4 bottles, 01/06/2019 also grew Enterococcus faecalis in 2/4 bottles (1 bottle from each set) and then 01/08/2019 grew Enterococcus 1 of 4. 01/10/2019 blood culture cleared. TILA consistent with MV prosthetic valve endocarditis. She was treated with daptomycin and gentamicin for 2 weeks then daptomycin alone on HD for extra 4 weeks per patient's report. Per patient, blood culture on 02/08/2019 were positive again and she was placed on levaquin q48 hour which she is still taking. Also she had a TILA on 02/11/2019 which showed EF 25-30%, LA dilated, smoke in LA and LA appendage, bioprosthetic MV normally functioning, trace MR, bioprosthetic AV functioning normally, tricuspid annuloplasty, mod TR, RV dilated, mild pulm HTN with RVSP 47mmHg, no vegetation. Pt was readmitted on 02/13/2019 due to worsening SOB and SIMS for 1 week. She denies any chest pain, palpitations, n/v, diaphoresis, dizziness or syncope. On evaluation, she states SOB is improving. LHC 10/22/2018 showed normal coronaries and normal LV function. TTE done 01/03/2019 showed EF 55%, mod LVH, prosthetic AV well seated, prosthetic MV well seated. Medications and Allergies Allergies Allergy/AdvReac Type Severity Reaction Status Date / Time cefazolin sodium [From Ancef] Allergy Severe Shortness Verified 01/05/17 14:55 of Breath ketorolac tromethamine Allergy Severe Shortness Verified 01/05/17 14:55 [From Toradol] of Breath morphine Allergy Severe Shortness Verified 01/05/17 14:55 of Breath vancomycin Allergy Shortness Verified 06/07/18 10:55 of Breath meperidine HCl [From Demerol] AdvReac Severe Shortness Verified 01/05/17 14:55 of Breath Home Medications Medication Instructions Recorded Confirmed Last Taken Type Sevelamer Carbonate [Renvela] 800 mg PO TIDWM 04/05/16 02/13/19 06/06/18 History 800 mg Aspirin [Adult Aspirin] 81 mg PO DAILY 02/13/19 02/13/19 Unknown History Active Meds: Active Medications Acetaminophen (Tylenol) 650 mg PO Q4H PRN PRN Reason: Pain MILD(1-3)/Fever >100.5/DENIS Aspirin (Halfprin Ec) 81 mg PO DAILY [facility] Last Admin: 02/14/19 09:29 Dose: 81 mg Documented by: Famotidine (Pepcid) 10 mg PO BID [facility] Last Admin: 02/14/19 09:29 Dose: 10 mg Documented by: Furosemide (Lasix) 40 mg IV 0600,1800 [facility] Hydromorphone HCl (Dilaudid) 0.5 mg IV Q3H PRN PRN Reason: Pain , Severe (7-10) Levofloxacin/Dextrose (Levaquin 500mg/100ml) 500 mg in 100 mls @ 100 mls/hr IV Q48HR [facility]; Protocol Last Admin: 02/14/19 09:29 Dose: 100 mls/hr Documented by: Sodium Chloride (Nacl 0.9%) 100 mls @ 999 mls/hr IV SHAILA PRN PRN Reason: Hypotension Stop: 02/24/19 09:50 Insulin Human Lispro (Humalog) 0 unit SUB-Q ACHS [facility]; Protocol Last Admin: 02/14/19 07:53 Dose: Not Given Documented by: Metoclopramide HCl (Reglan) 5 mg IV Q6H PRN PRN Reason: Nausea And Vomiting Ondansetron HCl (Zofran) 4 mg IV Q8H PRN PRN Reason: Nausea And Vomiting Oxycodone/Acetaminophen (Percocet 5/325) 1 tab PO Q6H PRN PRN Reason: Pain, Moderate (4-6) Potassium Chloride (K-Dur) 20 meq PO QDAY [facility] Last Admin: 02/14/19 09:30 Dose: Not Given Documented by: Sevelamer Carbonate (Renvela) 800 mg PO TIDWM [facility] Last Admin: 02/14/19 08:11 Dose: 800 mg Documented by: Sodium Chloride (Sodium Chloride Flush Syringe 10 Ml) 10 ml IV BID [facility] Last Admin: 02/14/19 09:30 Dose: 10 ml Documented by: Sodium Chloride (Sodium Chloride Flush Syringe 10 Ml) 10 ml IV PRN PRN PRN Reason: LINE FLUSH Review of Systems Constitutional: no weight loss, no weight gain Ears, nose, mouth and throat: no ear pain, no nose pain, no sinus pressure, no sinus pain Cardiovascular: shortness of breath, dyspnea on exertion, decreased exercise tolerance, no chest pain, no orthopnea, no palpitations, no rapid/irregular heart beat, no edema, no syncope, no lightheadedness, no leg edema Respiratory: shortness of breath, dyspnea on exertion, no cough, no congestion, no wheezing, no pain on inspiration Gastrointestinal: no abdominal pain, no nausea, no vomiting, no diarrhea, no constipation, no change in bowel habits Genitourinary Female: no pelvic pain, no flank pain, no dysuria, no urinary frequency, no urgency Musculoskeletal: no neck stiffness, no neck pain, no shooting arm pain, no arm numbness/tingling, no low back pain, no shooting leg pain Integumentary: no rash, no pruritis, no redness, no sores, no wounds Neurological: no head injury, no paralysis, no weakness, no parathesias, no numbness, no tingling, no seizures, no syncope Psychiatric: no anxiety Endocrine: no cold intolerance, no heat intolerance Hematologic/Lymphatic: no easy bruising, no easy bleeding Allergic/Immunologic: no urticaria, no wheezing Physical Examination Vital Signs Pulse 68 02/13/19 15:44 General appearance: no acute distress HEENT: Positive: PERRL, Normocephaly, Mucus Membranes Moist Neck: Positive: neck supple, trachea midline Cardiac: Positive: Reg Rate and Rhythm, S1/S2, Systolic Murmur Lungs: Positive: Decreased Breath Sounds Neuro: Positive: Grossly Intact Abdomen: Positive: Soft. Negative: Tender Skin: Positive: Other (sternotomy wound c/d/i). Negative: Rash Musculoskeletal: No Pain Extremities: Absent: edema Results 02/14/19 05:25 02/14/19 05:25 Cardiac Enzymes 02/13/19 02/14/19 Range/Units 16:33 05:25 AST 11 11 (5-40) units/L Lipids 02/13/19 Range/Units 16:02 Triglycerides 90 (2-149) mg/dL Cholesterol 78 (50-199) mg/dL HDL Cholesterol 34 L (40-59) mg/dL Cholesterol/HDL Ratio 2.29 % CBC 02/13/19 02/14/19 Range/Units 16:02 05:25 WBC 7.6 7.0 (4.5-11.0) K/mm3 RBC 3.88 3.68 (3.65-5.03) M/mm3 Hgb 10.2 9.7 L (10.1-14.3) gm/dl Hct 31.9 30.6 (30.3-42.9) % Plt Count 342 342 (140-440) K/mm3 Lymph # 1.3 1.2 (1.2-5.4) K/mm3 [place] # 0.7 0.7 (0.0-0.8) K/mm3 Eos # 0.0 0.0 (0.0-0.4) K/mm3 Baso # 0.1 0.1 (0.0-0.1) K/mm3 Comprehensive Metabolic Panel 02/13/19 02/13/19 02/14/19 Range/Units 16:02 16:33 05:25 Sodium 137 140 (137-145) mmol/L Potassium 4.3 4.3 (3.6-5.0) mmol/L Chloride 92.8 L 96.0 L (98-107) mmol/L Carbon Dioxide 29 27 (22-30) mmol/L BUN 23 H 26 H (7-17) mg/dL Creatinine 6.0 H 6.7 H (0.7-1.2) mg/dL Glucose 117 H 133 H (65-100) mg/dL Calcium 9.8 9.4 (8.4-10.2) mg/dL Direct Bilirubin 0.3 H (0-0.2) mg/dL Indirect Bilirubin 0.5 mg/dL AST 11 11 (5-40) units/L ALT 7 7 (7-56) units/L Alkaline Phosphatase 57 61 (35-129) units/L Total Protein 8.2 7.5 (6.3-8.2) g/dL Albumin 3.6 L 3.8 L (3.9-5) g/dL - Imaging and Cardiology Echo: report reviewed (TTE done 01/03/2019 showed EF 55%, mod LVH, prosthetic AV well seated, prosthetic MV well seated. TILA on 02/11/2019 which showed EF 25-30%, LA dilated, smoke in LA and LA appendage, bioprosthetic MV normally functioning, trace MR, bioprosthetic AV functioning normally, tricuspid annuloplasty, mod TR, RV dilated, mild pulm HTN with RVSP 47mmHg, no vegetation. ) Cardiac cath: report reviewed (10/22/2018 showed normal coronaries and normal LV function.) EKG: report reviewed, image reviewed Assessment and Plan Pt presented with SOB, SIMS, presumed HF. LHC 10/22/2018 showed normal coronaries and normal LV function. TTE done 01/03/2019 showed EF 55%, mod LVH, prosthetic AV well seated, prosthetic MV well seated. TILA on 02/11/2019 which showed EF 25-30%, LA dilated, smoke in LA and LA appendage, bioprosthetic MV normally functioning, trace MR, bioprosthetic AV functioning normally, tricuspid annuloplasty, mod TR, RV dilated, mild pulm HTN with RVSP 47mmHg, no vegetation. Initiate GDMT as tolerated in setting of new CMP. Of note, pt is in AFlutter with CVR with intermittent pacing. AFlutter appears to be a new diagnosis for her and reduction of EF could be secondary to AFlutter. Initiate Eliquis in setting of AFlutter. Cont volume optimization per nephrology. Troponin elevation appears c/w NSTEMI type II. Pt denies any chest pain, ECG with no acute changes. Cont to trend [place] and repeat ECG in AM. The patient has been seen in conjunction with Dr. Waters who agrees with the assessment and plan of care. - Patient Problems (1) Acute HFrEF (heart failure with reduced ejection fraction) Current Visit: Yes Status: Acute (2) Cardiomyopathy Current Visit: Yes Status: Chronic (3) Atrial flutter Current Visit: Yes Status: Acute (4) History of endocarditis Current Visit: Yes Status: Chronic (5) S/P aortic valve replacement with bioprosthetic valve Current Visit: Yes Status: Chronic (6) S/P mitral valve replacement with bioprosthetic valve Current Visit: Yes Status: Chronic (7) H/O tricuspid valve annuloplasty Current Visit: Yes Status: Chronic (8) End stage renal disease on dialysis Current Visit: Yes Status: Chronic (9) HTN (hypertension) Current Visit: Yes Status: Chronic (10) Diabetes Current Visit: Yes Status: Chronic (11) Cardiac pacemaker in situ Current Visit: Yes Status: Chronic (12) NSTEMI (non-ST elevated myocardial infarction) Current Visit: Yes Status: Acute Plan to address problem: type II
--- NOTE | 2019-02-14 11:15 | Consultation ---
History of Present Illness - Reason for Consult Consult date: 02/14/19 end stage renal disease Requesting physician: BRETT LAMBERT - History of Present Illness This is a 49 yo F with past medical history of hypertension, pulmonary hypertension, type 2 DM, ESRD, anemia of ESRD, h/o recent bioprosthetic AV/MV replacement tricuspid annuloplasty, h/o PPM placement for heart block on 11/25/18, who was hospitalized in early December [address] [facility] for recurrent enterococcus faecalis bacteremia, underwent treatment with daptomycin, currently on levaquin q48h, who now presents to [facility] ER with complaints of dyspnea on exertion, SOB, chest tightness, which has been worsening over the last few days. As per pt, she experience above symptoms since her AV/MV surgery, pt was supposed to receive cardiac rehab however was not able to get it due to recent hospitalization. Pt denies fever, chills, n/v/d, CP, palpitations, abd pain, diarrhea, dysuria. CXR in ER showed e/o pulmonary edema. Renal Consult is requested for management of ESRD/HD. Past History Past Medical History: anemia, diabetes, hypertension, renal failure Past Surgical History: valve replacement, Other (AVF) Social history: denies: smoking, alcohol abuse, prescription drug abuse, IV drug use Family history: hypertension Medications and Allergies Allergies Allergy/AdvReac Type Severity Reaction Status Date / Time cefazolin sodium [From Ancef] Allergy Severe Shortness Verified 01/05/17 14:55 of Breath ketorolac tromethamine Allergy Severe Shortness Verified 01/05/17 14:55 [From Toradol] of Breath morphine Allergy Severe Shortness Verified 01/05/17 14:55 of Breath vancomycin Allergy Shortness Verified 06/07/18 10:55 of Breath meperidine HCl [From Demerol] AdvReac Severe Shortness Verified 01/05/17 14:55 of Breath Home Medications Medication Instructions Recorded Confirmed Last Taken Type Sevelamer Carbonate [Renvela] 800 mg PO TIDWM 04/05/16 02/13/19 06/06/18 History 800 mg Aspirin [Adult Aspirin] 81 mg PO DAILY 02/13/19 02/13/19 Unknown History Active Meds: Active Medications Acetaminophen (Tylenol) 650 mg PO Q4H PRN PRN Reason: Pain MILD(1-3)/Fever >100.5/DENIS Aspirin (Halfprin Ec) 81 mg PO DAILY [facility] Last Admin: 02/14/19 09:29 Dose: 81 mg Documented by: Famotidine (Pepcid) 10 mg PO BID [facility] Last Admin: 02/14/19 09:29 Dose: 10 mg Documented by: Furosemide (Lasix) 40 mg IV 0600,1800 [facility] Hydromorphone HCl (Dilaudid) 0.5 mg IV Q3H PRN PRN Reason: Pain , Severe (7-10) Levofloxacin/Dextrose (Levaquin 500mg/100ml) 500 mg in 100 mls @ 100 mls/hr IV Q48HR [facility]; Protocol Last Admin: 02/14/19 09:29 Dose: 100 mls/hr Documented by: Sodium Chloride (Nacl 0.9%) 100 mls @ 999 mls/hr IV SHAILA PRN PRN Reason: Hypotension Stop: 02/24/19 09:50 Insulin Human Lispro (Humalog) 0 unit SUB-Q ACHS [facility]; Protocol Last Admin: 02/14/19 07:53 Dose: Not Given Documented by: Metoclopramide HCl (Reglan) 5 mg IV Q6H PRN PRN Reason: Nausea And Vomiting Ondansetron HCl (Zofran) 4 mg IV Q8H PRN PRN Reason: Nausea And Vomiting Oxycodone/Acetaminophen (Percocet 5/325) 1 tab PO Q6H PRN PRN Reason: Pain, Moderate (4-6) Potassium Chloride (K-Dur) 20 meq PO QDAY [facility] Last Admin: 02/14/19 09:30 Dose: Not Given Documented by: Sevelamer Carbonate (Renvela) 800 mg PO TIDWM [facility] Last Admin: 02/14/19 08:11 Dose: 800 mg Documented by: Sodium Chloride (Sodium Chloride Flush Syringe 10 Ml) 10 ml IV BID [facility] Last Admin: 02/14/19 09:30 Dose: 10 ml Documented by: Sodium Chloride (Sodium Chloride Flush Syringe 10 Ml) 10 ml IV PRN PRN PRN Reason: LINE FLUSH Review of Systems All systems: negative Constitutional: weakness, malaise Cardiovascular: shortness of breath, dyspnea on exertion, paroxysmal nocturnal dyspnea Exam - Vital Signs Vital signs: Vital Signs Pulse 68 02/13/19 15:44 - General Appearance General appearance: well-developed, well-nourished, appears stated age EENT: ATNC, PERRL, mucous membranes moist Neck: Present: neck supple Respiratory: Clear to Ascultation Heart: regular, S1S2 Gastrointestinal: Present: normoactive bowel sounds Integumentary: no rash, other (no edema ) Neurologic: no focal deficit, alert and oriented x3, strength 5/5, CN 3-12 intact Psychiatric: mood/affect appropriate, cooperative Results - Lab Results 02/14/19 05:25 02/14/19 05:25 Most recent lab results Calcium 9.4 mg/dL (8.4-10.2) 02/14/19 05:25 Assessment and Plan - Patient Problems (1) Pulmonary edema Current Visit: Yes Status: Acute Plan to address problem: will arrange isolated UF today, to target UF 2-3L as tolerated (2) Hypertensive chronic kidney disease with stage 5 chronic kidney disease or end stage renal disease Current Visit: Yes Status: Acute Plan to address problem: BP controlled, monitor BP on current meds (3) Type 2 diabetes mellitus with diabetic chronic kidney disease Current Visit: Yes Status: Acute Plan to address problem: glucose control as per primary attending (4) End stage renal disease Current Visit: Yes Status: Chronic Plan to address problem: isolated UF today, then cont HD on TTS schedule
[2019-02-14] MEDS: LEVAQUIN PO SCH (11:42)
[2019-02-14] MEDS: ELIQUIS PO SCH ×2 (12:03→21:41)
--- NOTE | 2019-02-14 14:41 | Event Note ---
Date: 02/14/19 Testing testing testing as his working
--- NOTE | 2019-02-14 16:13 | Progress Note ---
Assessment and Plan Assessment and plan: 49-year-old woman presents with shortness of breath 2 days, dyspnea on exertion, recently rx at [place] for endocarditis status post open heart surgery and a valve repair. 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 castano her primary ID physician History Interval history: Review of systems Constitutional: No fevers, no malaise, no joint pains CVS: No chest pain, c/o orthopnea, dyspnea on exertion, GI: No abdominal pain, no diarrhea, no vomiting, no constipation Respiratory: no wheezing, no coughing Hospitalist Physical - Physical exam Narrative exam: General.: Appears well, no distress, nontoxic HEENT: Moist mucous membranes, extraocular muscles intact, no lymphadenopathy Neck: supple Cardiac: S1-S2 heard Lungs: Crackles in bases Abdomen: soft , nontender, nondistended, bowel sounds positive Extremities: no edema clubbing or cyanosis Skin: no rash or lesions Neurologic: no gross focal deficits Psych: calm, and cooperative - Constitutional Vitals: Temp Pulse Resp BP Pulse Ox 98.2 F 80 16 136/91 98 02/14/19 12:00 02/14/19 12:51 02/14/19 12:51 02/14/19 11:31 02/14/19 12:00 General appearance: Present: no acute distress Results - Labs CBC & Chem 7: 02/14/19 05:25 02/14/19 05:25 Labs: Laboratory Last Values WBC 7.0 K/mm3 (4.5-11.0) 02/14/19 05:25 RBC 3.68 M/mm3 (3.65-5.03) 02/14/19 05:25 Hgb 9.7 gm/dl (10.1-14.3) L 02/14/19 05:25 Hct 30.6 % (30.3-42.9) 02/14/19 05:25 MCV 83 fl (79-97) 02/14/19 05:25 MCH 27 pg (28-32) L 02/14/19 05:25 MCHC 32 % (30-34) 02/14/19 05:25 RDW 20.7 % (13.2-15.2) H 02/14/19 05:25 Plt Count 342 K/mm3 (140-440) 02/14/19 05:25 Lymph % (Auto) 17.6 % (13.4-35.0) 02/14/19 05:25 [place] % (Auto) 9.7 % (0.0-7.3) H 02/14/19 05:25 Eos % (Auto) 0.0 % (0.0-4.3) 02/14/19 05:25 Baso % (Auto) 1.0 % (0.0-1.8) 02/14/19 05:25 Lymph # 1.2 K/mm3 (1.2-5.4) 02/14/19 05:25 [place] # 0.7 K/mm3 (0.0-0.8) 02/14/19 05:25 Eos # 0.0 K/mm3 (0.0-0.4) 02/14/19 05:25 Baso # 0.1 K/mm3 (0.0-0.1) 02/14/19 05:25 Seg Neutrophils % 71.7 % (40.0-70.0) H 02/14/19 05:25 Seg Neutrophils # 5.0 K/mm3 (1.8-7.7) 02/14/19 05:25 Sodium 140 mmol/L (137-145) 02/14/19 05:25 Potassium 4.3 mmol/L (3.6-5.0) 02/14/19 05:25 Chloride 96.0 mmol/L (98-107) L 02/14/19 05:25 Carbon Dioxide 27 mmol/L (22-30) 02/14/19 05:25 21 mmol/L 02/14/19 05:25 BUN 26 mg/dL (7-17) H 02/14/19 05:25 6.7 mg/dL (0.7-1.2) H 02/14/19 05:25 Estimated GFR 8 ml/min 02/14/19 05:25 4 % 02/14/19 05:25 Glucose 133 mg/dL (65-100) H 02/14/19 05:25 6.1 % (4-6) H 02/13/19 20:35 Lactic Acid 1.50 mmol/L (0.7-2.0) 02/13/19 16:33 Calcium 9.4 mg/dL (8.4-10.2) 02/14/19 05:25 0.60 mg/dL (0.1-1.2) 02/14/19 05:25 0.3 mg/dL (0-0.2) H 02/13/19 16:33 0.5 mg/dL 02/13/19 16:33 AST 11 units/L (5-40) 02/14/19 05:25 ALT 7 units/L (7-56) 02/14/19 05:25 61 units/L (35-129) 02/14/19 05:25 0.233 ng/mL (0.00-0.029) H* 02/13/19 20:35 0.249 ng/mL (0.00-0.029) H* 02/13/19 20:35 NT-Pro-B Natriuret Pep > 48016 pg/mL (0-450) H 02/13/19 16:33 7.5 g/dL (6.3-8.2) 02/14/19 05:25 3.8 g/dL (3.9-5) L 02/14/19 05:25 1.0 % 02/14/19 05:25 Triglycerides 90 mg/dL (2-149) 02/13/19 16:02 Cholesterol 78 mg/dL (50-199) 02/13/19 16:02 30 mg/dL (50-130) L 02/13/19 16:02 34 mg/dL (40-59) L 02/13/19 16:02 2.29 % 02/13/19 16:02 Active Medications - Current Medications Current Medications: Generic Name Dose Route Start Last Admin Trade Name Freq PRN Reason Stop Dose Admin Acetaminophen 650 mg 02/13/19 20:10 Tylenol PO Q4H PRN Pain MILD(1-3)/Fever >100.5/DENIS Apixaban 5 mg 02/14/19 12:00 02/14/19 12:03 Eliquis PO 5 mg Q12HR TODD Administration Protocol Famotidine 10 mg 02/13/19 22:00 02/14/19 09:29 Pepcid PO 10 mg BID TODD Administration Hydromorphone HCl 0.5 mg 02/13/19 20:10 Dilaudid IV Q3H PRN Pain , Severe (7-10) Sodium Chloride 100 mls @ 999 mls/hr 02/14/19 09:51 Nacl 0.9% IV 02/24/19 09:50 SHAILA PRN Hypotension Levofloxacin 500 mg 02/14/19 12:00 02/14/19 11:42 Levaquin PO 500 mg Q48HR TODD Administration Lisinopril 10 mg 02/15/19 10:00 Zestril PO QDAY TODD Metoclopramide HCl 5 mg 02/13/19 20:31 Reglan IV Q6H PRN Nausea And Vomiting Metoprolol Tartrate 25 mg 02/14/19 22:00 Lopressor PO BID TODD Ondansetron HCl 4 mg 02/13/19 20:10 Zofran IV Q8H PRN Nausea And Vomiting Oxycodone/Acetaminophen 1 tab 02/13/19 20:10 Percocet 5/325 PO Q6H PRN Pain, Moderate (4-6) Potassium Chloride 20 meq 02/13/19 21:00 02/14/19 09:30 K-Dur PO Not Given QDAY [facility] Sevelamer Carbonate 800 mg 02/14/19 08:00 02/14/19 11:42 Renvela PO 800 mg TIDWM TODD Administration Sodium Chloride 10 ml 02/13/19 22:00 02/14/19 09:30 Sodium Chloride Flush Syringe 10 Ml IV 10 ml BID TODD Administration Sodium Chloride 10 ml 02/13/19 20:10 Sodium Chloride Flush Syringe 10 Ml IV PRN PRN LINE FLUSH
[2019-02-14 17:47] LABS: Hepatitis B Surface Antigen Non-Reactive (Negative); Hepatitis C Virus Antibody Non-Reactive (NonReactive)
[2019-02-14] MEDS: LOPRESSOR PO SCH (21:53)
[2019-02-15] MEDS: RENVELA PO SCH ×3 (08:36→18:41)
[2019-02-15] MEDS ORDERED: NACL 0.9% 100 ML IV PRN (09:39)
[2019-02-15] MEDS ORDERED: HEPARIN IV ONE (09:43)
[2019-02-15] MEDS: PEPCID PO SCH ×3 (09:59→22:54)
[2019-02-15] MEDS: ELIQUIS PO SCH ×3 (09:59→22:54)
[2019-02-15] MEDS: K-DUR PO SCH (10:00)
[2019-02-15] MEDS ORDERED: ZESTRIL PO SCH (10:00)
[2019-02-15] MEDS ORDERED: HEPARIN 10,000 UNITS/10 ML IV NR (11:00)
--- NOTE | 2019-02-15 12:55 | Progress Note ---
Assessment and Plan Cultures: none Assessment: 49 y/o female with history of ESRD on HD, hypertension, pulmonary hypertension, diabetes, gout, MRSE bacteremia in November 2017 s/p prolonged daptomycin therapy, mitral valve endocarditis secondary to Enterococcus faecalis in July [address] Rodney (ID) s/p bioprosthetic aortic valve replacement, bioprosthetic mitral valve replacement, and tricuspid annuloplasty on 11/17/2018 at [facility], pacemaker for heart block on 11/25/2018 with recent recurrent persistent Enterococcal bacteremia with MV prosthetic valve endocarditis treated with daptomycin and gentamicin for 2 weeks then daptomycin alone on HD for extra 4 weeks per patient's report, apparently a repeat blood culture on 02/08/2019 was again positive, patient started on po levaquin q 48 hour which she is taking, repeat TILA 02/11/2019 no vegetation, readmitted on 02/13/2019 due to worsening SOB / SIMS for 48 hours: 1) SOB/SIMS: likely pulmonary edema ?CHF ?volume overload, less likely daptomycin-induced lung toxicity. BNP 70K. CXR mild cardiomegaly and pulmonary vascular congestion. 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 01/10/2019 blood culture cleared. TILA consistent with MV prosthetic valve endocarditis.Treated with daptomycin and gentamicin for 2 weeks then daptomycin alone on HD for extra 4 weeks per patient's report, apparently a repeat blood culture on 02/08/2019 was again positive, patient started on po levaquin q 48 hour which she is taking, repeat TILA 02/11/2019 no vegetation. No evidence of sepsis at this time. 3) History of MRSE bacteremia in November 2017 s/p prolonged daptomycin therapy 4) History of mitral valve endocarditis secondary to Enterococcus faecalis in July [address] Rodney/Miquel Recommendations: - obtain blood culture as recent one on 02/08/2019 at HD were called positive - continue levaquin renally adjusted as per Dr Rodney/Miquel - primary ID providers - cardiology consultation -Will obtain records from [facility] (HD blood cultures drawn on 02/08/19) Kathrin Lucas NP [facility] M: [phone] O:[phone] Subjective Date of service: 02/15/19 Interval history: Patient seen and examined in HD. Reports that her breathing is better post HD. No fevers. Objective - Exam Narrative Exam: General appearance: Alert in NAD Eyes: anicteric sclerae, moist conjunctivae; no lid-lag; PERRLA HENT: Atraumatic; oropharynx clear with moist mucous membranes and no mucosal ulcerations/no oral thrush; normal hard and soft palate. Lungs: CTA, with normal respiratory effort and no intercostal retractions CV: RRR no murmur Abdomen: Soft, non-tender; no masses or hepatosplenomegaly Extremities: nomild eboni leg edema, no cyanosis Skin: No rash. Midchest scar. Psych: Appropriate affect, alert and oriented to person, place and time. Neuro: alert and oriented x 3. Moving all extermities - Constitutional Vitals: Vital Signs Temp Pulse Resp BP Pulse Ox 98.4 F 72 18 127/74 98 02/15/19 08:09 02/15/19 10:02 02/15/19 08:09 02/15/19 10:02 02/15/19 08:09 Temperature -Last 24 Hours Temperature 98.4 F Temperature 97.7 F Temperature 97.6 F Temperature 98.2 F Temperature 98.2 F - Labs CBC & Chem 7: 02/14/19 05:25 02/14/19 05:25 Labs: Abnormal lab results 02/15/19 Range/Units 04:20 Troponin T 0.243 H* (0.00-0.029) ng/mL
--- NOTE | 2019-02-15 13:19 | Progress Note ---
Assessment and Plan Pt clinically improving. Pt reports h/o ACEI allergy (cough). Will change lisinopril to losartan, cont lopressor. Cont volume optimization per nephrology. The patient has been seen in conjunction with Dr. Waters who agrees with the assessment and plan of care. - Patient Problems (1) Acute HFrEF (heart failure with reduced ejection fraction) Current Visit: Yes Status: Acute (2) Cardiomyopathy Current Visit: Yes Status: Chronic (3) Atrial flutter Current Visit: Yes Status: Acute (4) History of endocarditis Current Visit: Yes Status: Chronic (5) S/P aortic valve replacement with bioprosthetic valve Current Visit: Yes Status: Chronic (6) S/P mitral valve replacement with bioprosthetic valve Current Visit: Yes Status: Chronic (7) H/O tricuspid valve annuloplasty Current Visit: Yes Status: Chronic (8) End stage renal disease on dialysis Current Visit: Yes Status: Chronic (9) HTN (hypertension) Current Visit: Yes Status: Chronic (10) Diabetes Current Visit: Yes Status: Chronic (11) Cardiac pacemaker in situ Current Visit: Yes Status: Chronic (12) NSTEMI (non-ST elevated myocardial infarction) Current Visit: Yes Status: Acute (13) History of angiotensin converting enzyme inhibitor (LYRIC-I) allergy Current Visit: Yes Status: Chronic Subjective Date of service: 02/15/19 Principal diagnosis: HF; AFlutter Interval history: pt resting in bed, states she is feeling better. tele reviewed - in paroxysmal AFlutter CVR with intermittent pacing overnight. Objective Last Vital Signs Temp 98.4 F 02/15/19 08:09 Pulse 72 02/15/19 10:02 Resp 18 02/15/19 08:09 BP 127/74 02/15/19 10:02 Pulse Ox 98 02/15/19 08:09 - Physical Examination General: No Apparent Distress HEENT: Positive: PERRL, Normocephaly, Mucus Membranes Moist Neck: Positive: neck supple, trachea midline Cardiac: Positive: irregularly irregular, S1/S2 Lungs: Positive: Decreased Breath Sounds Neuro: Positive: Grossly Intact Abdomen: Positive: Soft. Negative: Tender Skin: Positive: Other (sternotomy wound c/d/i). Negative: Rash Musculoskeletal: No Pain Extremities: Absent: edema - Imaging and Cardiology EKG: report reviewed, image reviewed Echo: report reviewed (TTE done 01/03/2019 showed EF 55%, mod LVH, prosthetic AV well seated, prosthetic MV well seated. TILA on 02/11/2019 which showed EF 25-30%, LA dilated, smoke in LA and LA appendage, bioprosthetic MV normally functioning, trace MR, bioprosthetic AV functioning normally, tricuspid annuloplasty, mod TR, RV dilated, mild pulm HTN with RVSP 47mmHg, no vegetation. ) Cardiac cath: report reviewed (10/22/2018 showed normal coronaries and normal LV function.) - EKG Sinus rhythms and dysrhythmias: sinus rhythm
--- NOTE | 2019-02-15 13:41 | Progress Note ---
Assessment and Plan Assessment and plan: 49-year-old woman presents with shortness of breath 2 days, dyspnea on exertion, recently rx at [facility] for endocarditis status post open heart surgery and a valve repair. 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 castano /Eze are her primary ID physicians Acute CHF/pulmonary edema, EF 25% Fluid managements by nephrology LYRIC changed to ARB given cough A flutter with hypercoagulable state With intermittent pacing, continue beta beth and, eliquis initiated by cardiology End-stage renal disease -Dialysis per nephrology Prediabetes -Continue to monitor History Interval history: Review of systems Constitutional: No fevers, no malaise, no joint pains CVS: No chest pain, c/o orthopnea, dyspnea on exertion, GI: No abdominal pain, no diarrhea, no vomiting, no constipation Respiratory: no wheezing, no coughing Hospitalist Physical - Physical exam Narrative exam: General.: Appears well, no distress, nontoxic HEENT: Moist mucous membranes, extraocular muscles intact, no lymphadenopathy Neck: supple Cardiac: S1-S2 heard Lungs: Crackles in bases Abdomen: soft , nontender, nondistended, bowel sounds positive Extremities: no edema clubbing or cyanosis Skin: no rash or lesions Neurologic: no gross focal deficits Psych: calm, and cooperative - Constitutional Vitals: Temp Pulse Resp BP Pulse Ox 98.3 F 93 H 18 135/89 98 02/15/19 10:30 02/15/19 12:45 02/15/19 10:30 02/15/19 12:45 02/15/19 08:09 General appearance: Present: no acute distress Results - Labs CBC & Chem 7: 02/14/19 05:25 02/14/19 05:25 Labs: Laboratory Last Values WBC 7.0 K/mm3 (4.5-11.0) 02/14/19 05:25 RBC 3.68 M/mm3 (3.65-5.03) 02/14/19 05:25 Hgb 9.7 gm/dl (10.1-14.3) L 02/14/19 05:25 Hct 30.6 % (30.3-42.9) 02/14/19 05:25 MCV 83 fl (79-97) 02/14/19 05:25 MCH 27 pg (28-32) L 02/14/19 05:25 MCHC 32 % (30-34) 02/14/19 05:25 RDW 20.7 % (13.2-15.2) H 02/14/19 05:25 Plt Count 342 K/mm3 (140-440) 02/14/19 05:25 Lymph % (Auto) 17.6 % (13.4-35.0) 02/14/19 05:25 Winkler % (Auto) 9.7 % (0.0-7.3) H 02/14/19 05:25 Eos % (Auto) 0.0 % (0.0-4.3) 02/14/19 05:25 Baso % (Auto) 1.0 % (0.0-1.8) 02/14/19 05:25 Lymph # 1.2 K/mm3 (1.2-5.4) 02/14/19 05:25 Winkler # 0.7 K/mm3 (0.0-0.8) 02/14/19 05:25 Eos # 0.0 K/mm3 (0.0-0.4) 02/14/19 05:25 Baso # 0.1 K/mm3 (0.0-0.1) 02/14/19 05:25 Seg Neutrophils % 71.7 % (40.0-70.0) H 02/14/19 05:25 Seg Neutrophils # 5.0 K/mm3 (1.8-7.7) 02/14/19 05:25 Sodium 140 mmol/L (137-145) 02/14/19 05:25 Potassium 4.3 mmol/L (3.6-5.0) 02/14/19 05:25 Chloride 96.0 mmol/L (98-107) L 02/14/19 05:25 Carbon Dioxide 27 mmol/L (22-30) 02/14/19 05:25 21 mmol/L 02/14/19 05:25 BUN 26 mg/dL (7-17) H 02/14/19 05:25 6.7 mg/dL (0.7-1.2) H 02/14/19 05:25 Estimated GFR 8 ml/min 02/14/19 05:25 4 % 02/14/19 05:25 Glucose 133 mg/dL (65-100) H 02/14/19 05:25 6.1 % (4-6) H 02/13/19 20:35 Lactic Acid 1.50 mmol/L (0.7-2.0) 02/13/19 16:33 Calcium 9.4 mg/dL (8.4-10.2) 02/14/19 05:25 0.60 mg/dL (0.1-1.2) 02/14/19 05:25 0.3 mg/dL (0-0.2) H 02/13/19 16:33 0.5 mg/dL 02/13/19 16:33 AST 11 units/L (5-40) 02/14/19 05:25 ALT 7 units/L (7-56) 02/14/19 05:25 61 units/L (35-129) 02/14/19 05:25 0.243 ng/mL (0.00-0.029) H* 02/15/19 04:20 NT-Pro-B Natriuret Pep > 66468 pg/mL (0-450) H 02/13/19 16:33 7.5 g/dL (6.3-8.2) 02/14/19 05:25 3.8 g/dL (3.9-5) L 02/14/19 05:25 1.0 % 02/14/19 05:25 Triglycerides 90 mg/dL (2-149) 02/13/19 16:02 Cholesterol 78 mg/dL (50-199) 02/13/19 16:02 30 mg/dL (50-130) L 02/13/19 16:02 34 mg/dL (40-59) L 02/13/19 16:02 2.29 % 02/13/19 16:02 Hepatitis A IgM Ab Non-reactive (NonReactive) 02/14/19 16:48 Hep Bs Antigen Non-reactive (Negative) 02/14/19 16:48 Hep B Core IgM Ab Non-reactive (NonReactive) 02/14/19 16:48 Non-reactive (NonReactive) 02/14/19 16:48 Active Medications - Current Medications Current Medications: Generic Name Dose Route Start Last Admin Trade Name Freq PRN Reason Stop Dose Admin Acetaminophen 650 mg 02/13/19 20:10 02/15/19 06:25 Tylenol PO 650 mg Q4H PRN Administration Pain MILD(1-3)/Fever >100.5/DENIS Apixaban 5 mg 02/14/19 12:00 02/14/19 21:41 Eliquis PO 5 mg Q12HR TODD Administration Protocol Famotidine 10 mg 02/13/19 22:00 02/14/19 21:42 Pepcid PO 10 mg BID TODD Administration Hydromorphone HCl 0.5 mg 02/13/19 20:10 Dilaudid IV Q3H PRN Pain , Severe (7-10) Sodium Chloride 100 mls @ 999 mls/hr 02/15/19 09:39 Nacl 0.9% IV SHAILA PRN Hypotension Levofloxacin 500 mg 02/14/19 12:00 02/14/19 11:42 Levaquin PO 500 mg Q48HR TODD Administration Losartan Potassium 12.5 mg 02/16/19 10:00 Cozaar PO QDAY TODD Metoclopramide HCl 5 mg 02/13/19 20:31 Reglan IV Q6H PRN Nausea And Vomiting Metoprolol Tartrate 25 mg 02/14/19 22:00 02/14/19 21:53 Lopressor PO 25 mg BID TODD Administration Ondansetron HCl 4 mg 02/13/19 20:10 Zofran IV Q8H PRN Nausea And Vomiting Oxycodone/Acetaminophen 1 tab 02/13/19 20:10 Percocet 5/325 PO Q6H PRN Pain, Moderate (4-6) Potassium Chloride 20 meq 02/13/19 21:00 02/15/19 10:00 K-Dur PO Not Given QDAY TODD Sevelamer Carbonate 800 mg 02/14/19 08:00 02/15/19 08:36 Renvela PO 800 mg TIDWM TODD Administration Sodium Chloride 10 ml 02/13/19 22:00 02/14/19 21:56 Sodium Chloride Flush Syringe 10 Ml IV 10 ml BID TODD Administration Sodium Chloride 10 ml 02/13/19 20:10 Sodium Chloride Flush Syringe 10 Ml IV PRN PRN LINE FLUSH
[2019-02-15] MEDS: LOPRESSOR PO SCH ×2 (14:23→22:55)
--- NOTE | 2019-02-15 16:13 | Progress Note ---
Assessment and Plan - Patient Problems (1) Pulmonary edema Current Visit: Yes Status: Acute Plan to address problem: improved respiratory symptoms s/p isolated UF yesterday. Another HD today with target UF of 2L as tolerated (2) Hypertensive chronic kidney disease with stage 5 chronic kidney disease or end stage renal disease Current Visit: Yes Status: Acute Plan to address problem: BP controlled, monitor BP on current meds (3) Type 2 diabetes mellitus with diabetic chronic kidney disease Current Visit: Yes Status: Acute Plan to address problem: glucose control as per primary attending (4) End stage renal disease Current Visit: Yes Status: Chronic Plan to address problem: cont HD on TTS schedule (5) Acute HFrEF (heart failure with reduced ejection fraction) Current Visit: Yes Status: Acute Plan to address problem: TILA on 02/11/2019 which showed EF 25-30%. cont volume optimization with HD/UF. agree with starting low dose losartan. Further management as per cardiology Subjective Date of service: 02/15/19 Principal diagnosis: HF; AFlutter Interval history: Pt seen and examined during HD, reports improved SOB, SIMS after additional isolated UF yesterday. Objective - Vital Signs Vital signs: Vital Signs - 12hr 02/15/19 02/15/19 02/15/19 05:38 05:40 08:09 Temperature 97.7 F 98.4 F Pulse Rate 73 72 Respiratory 18 18 Rate Blood Pressure 151/88 127/74 O2 Sat by Pulse 95 98 Oximetry 02/15/19 02/15/19 02/15/19 10:00 10:02 10:30 Temperature 98.3 F Pulse Rate 71 72 72 Respiratory 18 Rate Blood Pressure 127/74 116/72 O2 Sat by Pulse Oximetry 02/15/19 02/15/19 02/15/19 10:45 11:00 11:15 Temperature Pulse Rate 74 87 72 Respiratory Rate Blood Pressure 127/78 94/76 123/74 O2 Sat by Pulse Oximetry 02/15/19 02/15/19 02/15/19 11:30 11:45 12:00 Temperature Pulse Rate 76 73 79 Respiratory Rate Blood Pressure 131/81 135/72 107/63 O2 Sat by Pulse Oximetry 02/15/19 02/15/19 02/15/19 12:15 12:30 12:45 Temperature Pulse Rate 75 75 93 H Respiratory Rate Blood Pressure 121/64 136/92 135/89 O2 Sat by Pulse Oximetry 02/15/19 02/15/19 02/15/19 13:00 13:15 13:30 Temperature Pulse Rate 73 74 66 Respiratory Rate Blood Pressure 122/79 125/59 151/81 O2 Sat by Pulse Oximetry 02/15/19 02/15/19 13:45 14:23 Temperature 98.3 F Pulse Rate 72 66 Respiratory 18 Rate Blood Pressure 137/80 151/81 O2 Sat by Pulse Oximetry - General Appearance General appearance: well-developed, well-nourished, appears stated age EENT: ATNC, PERRL, mucous membranes moist Neck: no JVD Respiratory: Present: Clear to Ascultation Cardiology: regular, S1S2 Gastrointestinal: normoactive bowel sounds Integumentary: no rash, other (no edema ) Neurologic: no focal deficit, alert and oriented x3, strength 5/5, CN 3-12 intact Psychiatric: mood/affect appropriate, cooperative - Lab 02/14/19 05:25 02/14/19 05:25 Most recent lab results Calcium 9.4 mg/dL (8.4-10.2) 02/14/19 05:25 Medications & Allergies - Medications Allergies/Adverse Reactions: Allergies cefazolin sodium [From Ancef] Allergy (Severe, Verified 01/05/17 14:55) Shortness of Breath ketorolac tromethamine [From Toradol] Allergy (Severe, Verified 01/05/17 14:55) Shortness of Breath morphine Allergy (Severe, Verified 01/05/17 14:55) Shortness of Breath vancomycin Allergy (Verified 06/07/18 10:55) Shortness of Breath meperidine HCl [From Demerol] Adverse Reaction (Severe, Verified 01/05/17 14:55) Shortness of Breath lisinopril Adverse Reaction (Intermediate, Verified 02/15/19 13:43) Unknown cough Home Medications: Home Medications Medication Instructions Recorded Confirmed Last Taken Type Sevelamer Carbonate [Renvela] 800 mg PO TIDWM 04/05/16 02/13/19 06/06/18 History 800 mg Aspirin [Adult Aspirin] 81 mg PO DAILY 02/13/19 02/13/19 Unknown History Active Medications: Generic Name Dose Route Start Last Admin Trade Name Freq PRN Reason Stop Dose Admin Acetaminophen 650 mg 02/13/19 20:10 02/15/19 06:25 Tylenol PO 650 mg Q4H PRN Administration Pain MILD(1-3)/Fever >100.5/DENIS Apixaban 5 mg 02/14/19 12:00 02/15/19 14:23 Eliquis PO 5 mg Q12HR TODD Administration Protocol Famotidine 10 mg 02/13/19 22:00 02/15/19 14:23 Pepcid PO 10 mg BID TODD Administration Hydromorphone HCl 0.5 mg 02/13/19 20:10 Dilaudid IV Q3H PRN Pain , Severe (7-10) Sodium Chloride 100 mls @ 999 mls/hr 02/15/19 09:39 Nacl 0.9% IV SHAILA PRN Hypotension Levofloxacin 500 mg 02/14/19 12:00 02/14/19 11:42 Levaquin PO 500 mg Q48HR TODD Administration Losartan Potassium 12.5 mg 02/16/19 10:00 Cozaar PO QDAY TODD Metoclopramide HCl 5 mg 02/13/19 20:31 Reglan IV Q6H PRN Nausea And Vomiting Metoprolol Tartrate 25 mg 02/14/19 22:00 02/15/19 14:23 Lopressor PO 25 mg BID TODD Administration Ondansetron HCl 4 mg 02/13/19 20:10 Zofran IV Q8H PRN Nausea And Vomiting Oxycodone/Acetaminophen 1 tab 02/13/19 20:10 Percocet 5/325 PO Q6H PRN Pain, Moderate (4-6) Sevelamer Carbonate 800 mg 02/14/19 08:00 02/15/19 14:43 Renvela PO 800 mg TIDWM TODD Administration Sodium Chloride 10 ml 02/13/19 22:00 02/14/19 21:56 Sodium Chloride Flush Syringe 10 Ml IV 10 ml BID TODD Administration Sodium Chloride 10 ml 02/13/19 20:10 Sodium Chloride Flush Syringe 10 Ml IV PRN PRN LINE FLUSH
[2019-02-15] MEDS: SODIUM CHLORIDE FLUSH SYRINGE 10 ML IV SCH ×2 (18:42→23:02)
[2019-02-15] MEDS ORDERED: NACL 0.9 (PRIMING MACHINE ONLY DIALYSIS) MC ONE (18:43)
[2019-02-15] MEDS ORDERED: RESTORIL PO PRN (22:01)
[2019-02-15] MEDS ORDERED: AMBIEN PO PRN (22:24)
[2019-02-16] MEDS: RENVELA PO SCH ×3 (08:17→17:00)
[2019-02-16] MEDS: PEPCID PO SCH ×2 (09:08→22:28)
[2019-02-16] MEDS: LEVAQUIN PO SCH (09:08)
[2019-02-16] MEDS: ELIQUIS PO SCH ×2 (09:08→22:28)
[2019-02-16] MEDS: LOPRESSOR PO SCH ×2 (09:09→22:28)
[2019-02-16] MEDS: COZAAR PO SCH (09:09)
[2019-02-16] MEDS: SODIUM CHLORIDE FLUSH SYRINGE 10 ML IV SCH ×2 (09:12→22:29)
--- NOTE | 2019-02-16 11:05 | Progress Note ---
Assessment and Plan Currently stable cardiac status. Pt may discharge home from cardiology standpoint on current cardiac regimen. Follow up in our [place] office with Dr. Henderson on 02/18/2019 @ 3:00PM. The patient has been seen in conjunction with Dr. Waters who agrees with the assessment and plan of care. - Patient Problems (1) Acute HFrEF (heart failure with reduced ejection fraction) Current Visit: Yes Status: Acute (2) Cardiomyopathy Current Visit: Yes Status: Chronic (3) Atrial flutter Current Visit: Yes Status: Acute (4) History of endocarditis Current Visit: Yes Status: Chronic (5) S/P aortic valve replacement with bioprosthetic valve Current Visit: Yes Status: Chronic (6) S/P mitral valve replacement with bioprosthetic valve Current Visit: Yes Status: Chronic (7) H/O tricuspid valve annuloplasty Current Visit: Yes Status: Chronic (8) End stage renal disease on dialysis Current Visit: Yes Status: Chronic (9) HTN (hypertension) Current Visit: Yes Status: Chronic (10) Diabetes Current Visit: Yes Status: Chronic (11) Cardiac pacemaker in situ Current Visit: Yes Status: Chronic (12) NSTEMI (non-ST elevated myocardial infarction) Current Visit: Yes Status: Acute Plan to address problem: type II (13) History of angiotensin converting enzyme inhibitor (LYRIC-I) allergy Current Visit: Yes Status: Chronic Subjective Date of service: 02/16/19 Principal diagnosis: HF; AFlutter Interval history: pt resting in bed, states she is feeling better, SOB resolved and SIMS nearly resolved. tele reviewed - in paroxysmal AFlutter CVR with intermittent pacing overnight. Objective Last Vital Signs Temp 98.3 F 02/16/19 08:09 Pulse 80 02/16/19 09:09 Resp 16 02/16/19 08:09 BP 137/84 02/16/19 09:09 Pulse Ox 99 02/16/19 08:09 - Physical Examination General: No Apparent Distress HEENT: Positive: PERRL, Normocephaly, Mucus Membranes Moist Neck: Positive: neck supple, trachea midline Cardiac: Positive: irregularly irregular, S1/S2 Lungs: Positive: Decreased Breath Sounds Neuro: Positive: Grossly Intact Abdomen: Positive: Soft. Negative: Tender Skin: Positive: Other (sternotomy wound c/d/i). Negative: Rash Musculoskeletal: No Pain Extremities: Absent: edema - Imaging and Cardiology EKG: report reviewed, image reviewed Echo: report reviewed (TTE done 01/03/2019 showed EF 55%, mod LVH, prosthetic AV well seated, prosthetic MV well seated. TILA on 02/11/2019 which showed EF 25-30%, LA dilated, smoke in LA and LA appendage, bioprosthetic MV normally functioning, trace MR, bioprosthetic AV functioning normally, tricuspid annuloplasty, mod TR, RV dilated, mild pulm HTN with RVSP 47mmHg, no vegetation. ) Cardiac cath: report reviewed (10/22/2018 showed normal coronaries and normal LV function.) - EKG Sinus rhythms and dysrhythmias: sinus rhythm
--- NOTE | 2019-02-16 11:29 | Progress Note ---
Assessment and Plan - Patient Problems (1) Pulmonary edema Current Visit: Yes Status: Acute Plan to address problem: improved respiratory symptoms with HD/increased UF (2) Hypertensive chronic kidney disease with stage 5 chronic kidney disease or end stage renal disease Current Visit: Yes Status: Acute Plan to address problem: BP controlled, monitor BP on current meds (3) Type 2 diabetes mellitus with diabetic chronic kidney disease Current Visit: Yes Status: Acute Plan to address problem: glucose control as per primary attending (4) End stage renal disease Current Visit: Yes Status: Chronic Plan to address problem: cont HD on TTS schedule (5) Acute HFrEF (heart failure with reduced ejection fraction) Current Visit: Yes Status: Acute Plan to address problem: TILA on 02/11/2019 which showed EF 25-30%. cont volume optimization with HD/UF. agree with starting low dose losartan. Further management as per cardiology Subjective Date of service: 02/16/19 Principal diagnosis: HF; AFlutter Interval history: Pt awake, alert, in NAD, improved respiratory status Objective - Vital Signs Vital signs: Vital Signs - 12hr 02/15/19 02/16/19 02/16/19 23:34 04:19 08:09 Temperature 98.2 F 98.7 F 98.3 F Pulse Rate 75 74 80 Respiratory 16 16 16 Rate Blood Pressure 146/71 111/70 137/84 O2 Sat by Pulse 95 95 99 Oximetry 02/16/19 09:09 Temperature Pulse Rate 80 Respiratory Rate Blood Pressure 137/84 O2 Sat by Pulse Oximetry - General Appearance General appearance: well-developed, well-nourished, appears stated age EENT: ATNC, PERRL, mucous membranes moist Neck: no JVD Respiratory: Present: Clear to Ascultation Cardiology: regular, S1S2 Gastrointestinal: normal Integumentary: no rash, other (no edema ) Neurologic: no focal deficit, alert and oriented x3, strength 5/5, CN 3-12 intact Psychiatric: mood/affect appropriate, cooperative - Lab 02/14/19 05:25 02/14/19 05:25 Most recent lab results Calcium 9.4 mg/dL (8.4-10.2) 02/14/19 05:25 Medications & Allergies - Medications Allergies/Adverse Reactions: Allergies cefazolin sodium [From Anc] Allergy (Severe, Verified 01/05/17 14:55) Shortness of Breath ketorolac tromethamine [From Toradol] Allergy (Severe, Verified 01/05/17 14:55) Shortness of Breath morphine Allergy (Severe, Verified 01/05/17 14:55) Shortness of Breath vancomycin Allergy (Verified 06/07/18 10:55) Shortness of Breath meperidine HCl [From Demerol] Adverse Reaction (Severe, Verified 01/05/17 14:55) Shortness of Breath lisinopril Adverse Reaction (Intermediate, Verified 02/15/19 13:43) Unknown cough Home Medications: Home Medications Medication Instructions Recorded Confirmed Last Taken Type Sevelamer Carbonate [Renvela] 800 mg PO TIDWM 04/05/16 02/13/19 06/06/18 History 800 mg Aspirin [Adult Aspirin] 81 mg PO DAILY 02/13/19 02/13/19 Unknown History Active Medications: Generic Name Dose Route Start Last Admin Trade Name Freq PRN Reason Stop Dose Admin Acetaminophen 650 mg 02/13/19 20:10 02/15/19 06:25 Tylenol PO 650 mg Q4H PRN Administration Pain MILD(1-3)/Fever >100.5/DENIS Apixaban 5 mg 02/14/19 12:00 02/16/19 09:08 Eliquis PO 5 mg Q12HR TODD Administration Protocol Famotidine 10 mg 02/13/19 22:00 02/16/19 09:08 Pepcid PO 10 mg BID TODD Administration Hydromorphone HCl 0.5 mg 02/13/19 20:10 Dilaudid IV Q3H PRN Pain , Severe (7-10) Sodium Chloride 100 mls @ 999 mls/hr 02/15/19 09:39 Nacl 0.9% IV SHAILA PRN Hypotension Levofloxacin 500 mg 02/14/19 12:00 02/16/19 09:08 Levaquin PO 500 mg Q48HR TODD Administration Losartan Potassium 12.5 mg 02/16/19 10:00 02/16/19 09:09 Cozaar PO 12.5 mg QDAY TODD Administration Metoclopramide HCl 5 mg 02/13/19 20:31 Reglan IV Q6H PRN Nausea And Vomiting Metoprolol Tartrate 25 mg 02/14/19 22:00 02/16/19 09:09 Lopressor PO 25 mg BID TODD Administration Ondansetron HCl 4 mg 02/13/19 20:10 Zofran IV Q8H PRN Nausea And Vomiting Oxycodone/Acetaminophen 1 tab 02/13/19 20:10 Percocet 5/325 PO Q6H PRN Pain, Moderate (4-6) Sevelamer Carbonate 800 mg 02/14/19 08:00 02/16/19 08:17 Renvela PO 800 mg TIDWM TODD Administration Sodium Chloride 10 ml 02/13/19 22:00 02/16/19 09:12 Sodium Chloride Flush Syringe 10 Ml IV 10 ml BID TODD Administration Sodium Chloride 10 ml 02/13/19 20:10 Sodium Chloride Flush Syringe 10 Ml IV PRN PRN LINE FLUSH Zolpidem Tartrate 5 mg 02/15/19 22:24 02/15/19 22:54 Ambien PO 5 mg QHS PRN Administration Sleep
--- NOTE | 2019-02-16 11:30 | Progress Note ---
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 BNP 70K. CXR mild cardiomegaly and pulmonary vascular congestion. 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 01/10/2019 blood culture cleared. TILA consistent with MV prosthetic valve endocarditis.Treated with daptomycin and gentamicin for 2 weeks then daptomycin alone on HD for extra 4 weeks per patient's report, apparently a repeat blood culture on 02/08/2019 was again positive, patient started on po levaquin q 48 hour which she is taking, repeat TILA 02/11/2019 no vegetation. No evidence of sepsis at this time. 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 No generalized pain or weakness reported. No fevers. Objective - Exam Narrative Exam: General appearance: Awake. Alert. No acute distress Eyes: anicteric sclerae, moist conjunctivae; no lid-lag; PERRLA HENT: Atraumatic; oropharynx clear with moist mucous membranes and no mucosal ul cerations/no oral thrush; normal hard and soft palate. Lungs: CTA, with normal respiratory effort and no intercostal retractions CV: RRR no murmur Abdomen: Soft, non-tender; no masses or hepatosplenomegaly Extremities: nomild eboni leg edema, no cyanosis Skin: No rash. Midchest scar. Psych: Appropriate affect, alert and oriented to person, place and time. Neuro: alert and oriented x 3. Moving all extermities - Constitutional Vitals: Vital Signs Temp Pulse Resp BP Pulse Ox 98.3 F 80 16 137/84 99 02/16/19 08:09 02/16/19 09:09 02/16/19 08:09 02/16/19 09:09 02/16/19 08:09 Temperature -Last 24 Hours Temperature 98.3 F Temperature 98.7 F Temperature 98.2 F Temperature 98.5 F Temperature 98.2 F Temperature 98.3 F - Labs CBC & Chem 7: 02/14/19 05:25 02/14/19 05:25
--- NOTE | 2019-02-16 15:43 | Event Note ---
Date: 02/16/19 Physician Attestation: I have personally seen and examined patient. I personally discussed and directed assessment and management with TICKET SALES SUPERVISOR Shayy. Blood cultures negative. F/u with primary ID group on levaquin per their recommendation. Almita Winters MD Infectious Diseases Driver License Technician [facility] M [phone] O [phone]
--- NOTE | 2019-02-16 16:20 | Progress Note ---
Assessment and Plan - Patient Problems (1) Acute exacerbation of congestive heart failure Current Visit: Yes Status: Acute Qualifiers: Heart failure type: combined systolic and diastolic Qualified Code(s): I50.43 - Acute on chronic combined systolic (congestive) and diastolic (congestive) heart failure Plan to address problem: Patient is also missing her dialysis Volume overload IV Lasix for now Echocardiogram ordered Daily weights and intake and output ordered Cardiology consult requested (2) End stage renal disease on dialysis Current Visit: Yes Status: Chronic Plan to address problem: Next hemodialysis on regular basis Patient is noncompliant Nephrology Dr. Nicole consulted (3) Elevated troponin I level Current Visit: Yes Status: Chronic Plan to address problem: NSTEMI type 2 Secondary to troponin leak (4) Type 2 diabetes mellitus Current Visit: Yes Status: Chronic Qualifiers: Diabetes mellitus watermelon harvesting supervisor insulin use: without watermelon harvesting supervisor use Plan to address problem: Coverage for now Check hemoglobin A1c (5) Endocarditis Current Visit: Yes Status: Chronic Qualifiers: Endocarditis type: infective Chronicity: subacute Plan to address problem: Treated for 12 weeks Patient will not need further antibiotics Will defer to ID for second opinion Patient was being treated by Dr. Rodney in [facility] (6) DVT prophylaxis Current Visit: Yes Status: Acute Plan to address problem: On heparin and GI prophylaxis (7) Discharge planning issues Current Visit: Yes Status: Acute Plan to address problem: For discharge tomorrow after HD Subjective Date of service: 02/16/19 Principal diagnosis: HF; AFlutter Interval history: 49-year-old woman presents with shortness of breath 2 days, dyspnea on exertion, recently rx at [place] for endocarditis status post open heart surgery and a valve repair. She is on long-term IV antibiotics for sepsis, she just had a TILA on Thursday and that was negative for vegetations Past medical history; hypertension, prediabetes, liver disease, end-stage renal disease, bovine aortic and mitral valve replacements 11/12 Objective - Constitutional Vitals: Vital Signs - 12hr 02/16/19 02/16/19 02/16/19 08:09 09:09 10:00 Temperature 98.3 F Pulse Rate 80 80 70 Pulse Rate [ 72 From Monitor] Respiratory 16 20 Rate Blood Pressure 137/84 137/84 O2 Sat by Pulse 99 99 Oximetry 02/16/19 13:01 Temperature 97.4 F L Pulse Rate 75 Pulse Rate [ From Monitor] Respiratory 18 Rate Blood Pressure 150/60 O2 Sat by Pulse 94 Oximetry General appearance: Present: no acute distress, well-nourished - EENT Eyes: PERRL, EOM intact ENT: hearing intact, clear oral mucosa Ears: bilateral: normal - Neck Neck: supple, normal ROM - Respiratory Respiratory effort: normal Respiratory: bilateral: CTA - Breasts Breasts: normal - Cardiovascular Rhythm: regular Heart Sounds: Present: S1 & S2. Absent: gallop, rub Extremities: pulses intact, No edema, normal color, Full ROM - Gastrointestinal General gastrointestinal: Present: soft, non-tender, non-distended, normal bowel sounds - Genitourinary Female genitourinary: normal - Integumentary Integumentary: clear, warm, dry - Musculoskeletal Musculoskeletal: 1, strength equal bilaterally - Neurologic Neurologic: moves all extremities - Psychiatric Psychiatric: memory intact, appropriate mood/affect, intact judgment & insight - Labs CBC & Chem 7: 02/14/19 05:25 02/14/19 05:25
[2019-02-17] MEDS: RENVELA PO SCH ×3 (12:50→17:18)
[2019-02-17] MEDS: COZAAR PO SCH (12:51)
[2019-02-17] MEDS: LOPRESSOR PO SCH (12:53)
[2019-02-17] MEDS: PEPCID PO SCH (12:53)
[2019-02-17] MEDS: ELIQUIS PO SCH (12:54)
[2019-02-17 12:56] VITALS: BP 147/76
--- NOTE | 2019-02-17 17:08 | Progress Note ---
Assessment and Plan - Patient Problems (1) Pulmonary edema Current Visit: Yes Status: Acute Plan to address problem: improved respiratory symptoms with HD/increased UF (2) Hypertensive chronic kidney disease with stage 5 chronic kidney disease or end stage renal disease Current Visit: Yes Status: Acute Plan to address problem: BP controlled, monitor BP on current meds (3) Type 2 diabetes mellitus with diabetic chronic kidney disease Current Visit: Yes Status: Acute Plan to address problem: glucose control as per primary attending (4) End stage renal disease Current Visit: Yes Status: Chronic Plan to address problem: cont HD on TTS schedule. stable for discharge from renal stand point after HD (5) Acute HFrEF (heart failure with reduced ejection fraction) Current Visit: Yes Status: Acute Plan to address problem: TILA on 02/11/2019 which showed EF 25-30%. cont volume optimization with HD/UF. agree with starting low dose losartan. Further management as per cardiology Subjective Date of service: 02/17/19 Principal diagnosis: HF; AFlutter Interval history: Pt awake, alert, in NAD, improved respiratory status Objective - Vital Signs Vital signs: Vital Signs - 12hr 02/17/19 02/17/19 02/17/19 07:21 08:55 09:05 Temperature 97.7 F 97.7 F Pulse Rate 120 H 77 71 Respiratory 18 18 Rate Blood Pressure 124/84 131/77 161/89 O2 Sat by Pulse 84 Oximetry 02/17/19 02/17/19 02/17/19 09:15 09:30 09:45 Temperature Pulse Rate 80 102 H 72 Respiratory Rate Blood Pressure 139/84 145/118 123/80 O2 Sat by Pulse Oximetry 02/17/19 02/17/19 02/17/19 10:00 10:15 10:30 Temperature Pulse Rate 73 72 71 Respiratory Rate Blood Pressure 126/77 130/82 116/81 O2 Sat by Pulse Oximetry 02/17/19 02/17/19 02/17/19 10:45 11:00 11:15 Temperature Pulse Rate 72 71 71 Respiratory Rate Blood Pressure 147/90 109/64 141/93 O2 Sat by Pulse Oximetry 02/17/19 02/17/19 02/17/19 11:30 11:45 12:51 Temperature Pulse Rate 71 70 72 Respiratory Rate Blood Pressure 118/71 117/59 147/76 O2 Sat by Pulse Oximetry 02/17/19 12:53 Temperature Pulse Rate 72 Respiratory Rate Blood Pressure 147/76 O2 Sat by Pulse Oximetry - General Appearance General appearance: well-developed, well-nourished, appears stated age EENT: ATNC, PERRL, mucous membranes moist Neck: no JVD Respiratory: Present: Clear to Ascultation Cardiology: regular, S1S2 Gastrointestinal: normoactive bowel sounds Integumentary: no rash, other (no edema ) Neurologic: no focal deficit, alert and oriented x3, strength 5/5, CN 3-12 intact Psychiatric: mood/affect appropriate, cooperative - Lab 02/14/19 05:25 02/14/19 05:25 Most recent lab results Calcium 9.4 mg/dL (8.4-10.2) 02/14/19 05:25 Medications & Allergies - Medications Allergies/Adverse Reactions: Allergies cefazolin sodium [From Ancef] Allergy (Severe, Verified 01/05/17 14:55) Shortness of Breath ketorolac tromethamine [From Toradol] Allergy (Severe, Verified 01/05/17 14:55) Shortness of Breath morphine Allergy (Severe, Verified 01/05/17 14:55) Shortness of Breath vancomycin Allergy (Verified 06/07/18 10:55) Shortness of Breath meperidine HCl [From Demerol] Adverse Reaction (Severe, Verified 01/05/17 14:55) Shortness of Breath lisinopril Adverse Reaction (Intermediate, Verified 02/15/19 13:43) Unknown cough Home Medications: Home Medications Medication Instructions Recorded Confirmed Last Taken Type Sevelamer Carbonate [Renvela] 800 mg PO TIDWM 04/05/16 02/13/19 06/06/18 History 800 mg Aspirin [Adult Aspirin] 81 mg PO DAILY 02/13/19 02/13/19 Unknown History Active Medications: Generic Name Dose Route Start Last Admin Trade Name Freq PRN Reason Stop Dose Admin Acetaminophen 650 mg 02/13/19 20:10 02/15/19 06:25 Tylenol PO 650 mg Q4H PRN Administration Pain MILD(1-3)/Fever >100.5/DENIS Apixaban 5 mg 02/14/19 12:00 02/17/19 12:54 Eliquis PO 5 mg Q12HR TODD Administration Protocol Famotidine 10 mg 02/13/19 22:00 02/17/19 12:53 Pepcid PO 10 mg BID TODD Administration Hydromorphone HCl 0.5 mg 02/13/19 20:10 Dilaudid IV Q3H PRN Pain , Severe (7-10) Sodium Chloride 100 mls @ 999 mls/hr 02/15/19 09:39 Nacl 0.9% IV SHAILA PRN Hypotension Levofloxacin 500 mg 02/14/19 12:00 02/16/19 09:08 Levaquin PO 500 mg Q48HR TODD Administration Losartan Potassium 12.5 mg 02/16/19 10:00 02/17/19 12:51 Cozaar PO 12.5 mg QDAY TODD Administration Metoclopramide HCl 5 mg 02/13/19 20:31 Reglan IV Q6H PRN Nausea And Vomiting Metoprolol Tartrate 25 mg 02/14/19 22:00 02/17/19 12:53 Lopressor PO 25 mg BID TODD Administration Ondansetron HCl 4 mg 02/13/19 20:10 Zofran IV Q8H PRN Nausea And Vomiting Oxycodone/Acetaminophen 1 tab 02/13/19 20:10 Percocet 5/325 PO Q6H PRN Pain, Moderate (4-6) Sevelamer Carbonate 800 mg 02/14/19 08:00 02/17/19 12:53 Renvela PO 800 mg TIDWM TODD Administration Sodium Chloride 10 ml 02/13/19 22:00 02/16/19 22:29 Sodium Chloride Flush Syringe 10 Ml IV 10 ml BID TODD Administration Sodium Chloride 10 ml 02/13/19 20:10 Sodium Chloride Flush Syringe 10 Ml IV PRN PRN LINE FLUSH Zolpidem Tartrate 5 mg 02/15/19 22:24 02/15/19 22:54 Ambien PO 5 mg QHS PRN Administration Sleep
--- NOTE | 2019-02-17 18:16 | Discharge Summary ---
Providers - Providers Date of Admission: 02/13/19 17:32 Date of discharge: 02/17/19 Attending physician: BRETT LAMBERT 02/13/19 20:10 Consult to Physician [CONS] Routine Comment: Consulting Provider: DIANA GRESHAM Physician Instructions: Reason For Exam: ESRD Consult to Physician [CONS] Urgent Comment: Consulting Provider: ISA RIOS Physician Instructions: Reason For Exam: CHF 02/13/19 20:39 Consult to Physician [CONS] Routine Comment: Consulting Provider: AASHISH ANDREWS Physician Instructions: Reason For Exam: rule out endocarditis 02/15/19 09:24 Occupational Therapy Evaluate and Treat [CONS] Routine Comment: question ability to perform adls Reason For Exam: weakness Physical Therapy Evaluation and Treat [CONS] Routine Comment: question ability to perform adls Reason For Exam: weakness Primary care physician: TELECOM COORDINATOR Hospitalization Condition: Critical Hospital course: 49-year-old -[place] female with history of hypertension, end-stage renal disease on hemodialysis: Type 2 diabetes and recent endocarditis on Levaquin constant for increasing shortness of breath and orthopnea for 2 days. Patient gets short of breath on walking a few steps consistent with NYHA class IV symptoms. Patient also has orthopnea. Unable to lie flat. She had mitral valve did valve replacement in October 2018 secondary to endocarditis. Patient has been on daptomycin and recently changed to Levaquin. As per the patient--- patient is being on antibiotics for the last 12 weeks. No fever or chills. Patient is being treated by Dr. rodney from [facility]. No cough. No chest pain. No diaphoresis. - Patient Problems (1) Acute exacerbation of congestive heart failure Current Visit: Yes Status: Acute Qualifiers: Heart failure type: combined systolic and diastolic Qualified Code(s): I50.43 - Acute on chronic combined systolic (congestive) and diastolic (congestive) heart failure Plan to address problem: Patient is also missing her dialysis Volume overload IV Lasix for now (2) End stage renal disease on dialysis Current Visit: Yes Status: Chronic Plan to address problem: Next hemodialysis on regular basis Patient is noncompliant Nephrology Dr. Nicole consulted (3) Elevated troponin I level Current Visit: Yes Status: Chronic Plan to address problem: NSTEMI type 2 Secondary to troponin leak (4) Type 2 diabetes mellitus Current Visit: Yes Status: Chronic Qualifiers: Diabetes mellitus residential insulin use: without terminal supervisor use Plan to address problem: Coverage for now Check hemoglobin A1c (5) Endocarditis Current Visit: Yes Status: Chronic Qualifiers: Endocarditis type: infective Chronicity: subacute Plan to address problem: Treated for 12 weeks Patient was being treated by Dr. Rodney in [facility] Follow up with Dr Rodney Disposition: DC-01 TO HOME OR SELFCARE - Discharge Diagnoses (1) Acute exacerbation of congestive heart failure Status: Acute Qualifiers: Heart failure type: combined systolic and diastolic Qualified Code(s): I50.43 - Acute on chronic combined systolic (congestive) and diastolic (congestive) heart failure (2) End stage renal disease on dialysis Status: Chronic (3) Elevated troponin I level Status: Chronic (4) Type 2 diabetes mellitus Status: Chronic Qualifiers: Diabetes mellitus residential insulin use: without terminal supervisor use (5) Endocarditis Status: Chronic Qualifiers: Endocarditis type: infective Chronicity: subacute (6) DVT prophylaxis Status: Acute (7) Discharge planning issues Status: Acute Core Measure Documentation - Palliative Care Palliative Care/ Comfort Measures: Not Applicable - Core Measures Any of the following diagnoses?: none Exam - Constitutional Vitals: Temp Pulse Resp BP Pulse Ox 97.7 F 72 18 147/76 84 02/17/19 12:03 02/17/19 12:53 02/17/19 12:03 02/17/19 12:53 02/17/19 07:21 General appearance: Present: no acute distress, well-nourished - EENT Eyes: Present: PERRL ENT: hearing intact, clear oral mucosa - Neck Neck: Present: supple, normal ROM - Respiratory Respiratory effort: normal Respiratory: bilateral: CTA - Cardiovascular Heart rate: 78 Rhythm: regular Heart Sounds: Present: S1 & S2. Absent: rub, click - Extremities Extremities: no ischemia, pulses intact, pulses symmetrical, No edema Peripheral Pulses: within normal limits - Abdominal General gastrointestinal: Present: soft, non-tender, non-distended, normal bowel sounds Female genitourinary: Present: normal - Rectal Rectal Exam: deferred - Integumentary Integumentary: Present: clear, warm, dry - Musculoskeletal Musculoskeletal: gait normal, strength equal bilaterally - Psychiatric Psychiatric: appropriate mood/affect, intact judgment & insight - Neurologic Neurologic: CNII-XII intact, moves all extremities - Allied Health Allied health notes reviewed: nursing, case management Plan Activity: no restrictions Diet: renal Follow up with: ISA RIOS MD [Staff Physician] - 7 Days () PRIMARY CAREMD [Primary Care Provider] - 3-5 Days (Follow up in our [place] office with Dr. Rios on 02/18/2019 @ 3:00PM. )
[2019-02-17] MEDS ORDERED: NACL 0.9 (PRIMING MACHINE ONLY DIALYSIS) MC ONE (19:41)
== END 2019-02-17 19:00 | disposition home or self-care (01) | DRG 280 ==
LOC: ED 15:26 → 4A 17:32 → IMCU 21:24 → 4A 02-14 22:54
PROVIDERS: ADMIT Internal Medicine; ATTEND Internal Medicine
PROC: 5A1D70Z Performance of Urinary Filtration, Intermittent, Less than 6 Hours Per Day (ICD-10-PCS; principal; 2019-02-14)
PROC: 5A1D70Z Performance of Urinary Filtration, Intermittent, Less than 6 Hours Per Day (ICD-10-PCS; 2019-02-15)
PROC: 5A1D70Z Performance of Urinary Filtration, Intermittent, Less than 6 Hours Per Day (ICD-10-PCS; 2019-02-17)
DX: I21.A1 Myocardial infarction type 2 (principal); I50.43 Acute on chronic combined systolic (congestive) and diastolic (congestive) heart failure; N18.6 End stage renal disease; I33.0 Acute and subacute infective endocarditis; I13.2 Hypertensive heart and chronic kidney disease with heart failure and with stage 5 chronic kidney disease, or end stage renal disease; I42.9 Cardiomyopathy, unspecified; I48.92 Unspecified atrial flutter; D68.59 Other primary thrombophilia; E11.22 Type 2 diabetes mellitus with diabetic chronic kidney disease; Z95.0 Presence of cardiac pacemaker; Z82.49 Family history of ischemic heart disease and other diseases of the circulatory system; Z88.5 Allergy status to narcotic agent; Z88.1 Allergy status to other antibiotic agents; Z79.82 Long term (current) use of aspirin; Z79.899 Other long term (current) drug therapy; Z90.49 Acquired absence of other specified parts of digestive tract
CPT/HCPCS: 36415; 71045; 80048; 80053; 80061; 80074; 80076; 82140; 83036; 83880; 84484; 85025; 87040; 93005; 93010; G0378; J1940; J1956; J7030